=== PATIENT | male | born 1970 | race Caucasian/White ===

== ENCOUNTER 2025-04-20 13:06 | Oncology outpatient (recurring) (ONCR) | payer MEDICARE, SELFPAY ==
[2025-04-20 14:25] LABS: Hematocrit 41.5 % (37-53); Hemoglobin 14.50 g/dL (11.27-16.99); Mean Corpuscular HGB Conc 34.9 g/dL (30-55); Mean Corpuscular Hemoglobin 32.1 pg (27-33); Mean Corpuscular Volume 91.8 fl (82-101); Nucleated Red Blood Cells % 0 %; Platelet Count 323 10^3/cmm (157-399); Red Blood Count 4.52 10^6/uL (3.85-5.65); White Blood Count 9.37 10^3/uL (3.29-11.43)
[2025-04-20 14:40] LABS: Alanine Aminotransferase 16 U/L (0-41); Albumin Level 4.4 g/dL (3.5-5.2); Alkaline Phosphatase 89 U/L (40-130); Blood Urea Nitrogen 15 mg/dL (6-20); Calcium 9.4 mg/dL (8.5-10.5); Carbon Dioxide 25 mmol/L (22-29); Chloride 103 mmol/L (98-107); Globulin 3.2 g/dL (1.3-4.6); Glucose 95 mg/dL (65-115); Osmolality Calculated 291 mOsm/kg (285-295); Sodium 140 mmol/L (136-145); Total Protein 7.6 g/dL (6.6-8.7)
[2025-04-20 14:50] LABS: Anion Gap 16.1 (5-19); Aspartate Amino Transferase 16 U/L (0-40); Potassium 4.1 mmol/L (3.5-5.1)
== END 2025-04-24 23:59 | disposition home or self-care (01) ==
PROVIDERS: Visit Provider Internal Medicine
DX: Z53.9 Procedure and treatment not carried out, unspecified reason (principal); Z08 Encounter for follow-up examination after completed treatment for malignant neoplasm; Z85.528 Personal history of other malignant neoplasm of kidney; Z85.830 Personal history of malignant neoplasm of bone; Z87.891 Personal history of nicotine dependence; Z90.5 Acquired absence of kidney
CPT/HCPCS: 36415; 80053; 83615; 85025; 99204

== ENCOUNTER → 2025-05-11 08:49 | Outpatient (BNVA) | payer MEDICARE, SELFPAY | PROVIDERS: PCP Nurse Practitioner Family; Visit Provider Podiatrist Foot & Ankle Surgery | DX: M72.2 Plantar fascial fibromatosis (principal); M77.40 Metatarsalgia, unspecified foot | CPT/HCPCS: 99203 ==

== ENCOUNTER 2025-05-16 17:48 | Inpatient (IN) | payer MEDICARE, SELFPAY ==
[2025-05-16] VITALS (22 sets, daily range): BP systolic 109–153; BP diastolic 55–95; PULSE 60–80; RESP 16–18; TEMP 36.4; O2SAT 93–99; BMI 32.4
--- NOTE | 2025-05-16 17:52 | ECG_ITS ---
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
--- NOTE | 2025-05-16 17:52 | XRR_ITS ---
PROCEDURE INFORMATION: Exam: XR Chest Exam date and time: 05/16/2025 5:59 PM Age: 54 years old Clinical indication: Screening exam; Other screening; Prior surgery; Surgery date: 6+ months; Surgery type: Chest area; Additional info: Dyspnea/cough overdose TECHNIQUE: Imaging protocol: Radiologic exam of the chest. Views: 1 view. Total images: 373 COMPARISON: No relevant prior studies available. FINDINGS: Lungs: No lung consolidation, mass, or acute pulmonary abnormality identified. Pleural spaces: No pathologic pleural thickening, significant pleural effusion or pneumothorax. Heart/Mediastinum: Normal heart size. Diaphragm: Elevated left diaphragm. Bones/joints: Prior median sternotomy. Right 5th and 6th rib synostosis. Mild age-appropriate degenerative changes at the AC and glenohumeral joints; osteoarthritis. Moderate generalized degenerative changes of the vertebral column, including multilevel osteophytes, degenerative disc height loss, and facet arthrosis, consistent with patient age. XR/XR chest 1V portable [id number] IMPRESSION: 1. No acute chest pathology identified. 2. Moderate age-appropriate degenerative spinal changes. Other chronic/non-acute findings as described above.
[2025-05-16 17:59] LABS: ABG PCO2 37.4 mmHg (35-45); ABG PH Result 7.40 (7.35-7.45); Alveolar-Arterial Oxygen Gradi 3.3 mmHg (5-10); Arterial Blood Gas Hematocrit 48.2 % (42-52); Blood Gas Allen Test Pos; Blood Gas Operator Identificat GL; Blood Gas Sample Site Radial, right; Blood Gas Sample Type Arterial; Carboxyhemoglobin 1.2 %THgb (0.4-20.1); Glucose Level-ABG 89.0 mg/dL (70-115); HCO3 ABG 23.0 mmol/L (22-26); Ionized Calcium Level - ABG 1.2 mmol/L (1.1-1.4); Methemoglobin 0.1 % (0.4-1.5); Oxygen Saturation ABG 96.3; PO2 ABG 77.6 mmHg (80.0-100.0); PO2 FiO2 Ratio Arterial Blood 369; Potassium Level - ABG 4.0 mmol/L (3.5-5.0); Sodium Level - ABG 143.0 mmol/L (131-143)
--- OUTSIDE RECORDS SUMMARY | 2025-05-16 17:59 | XMS_ITS | Encounter Summary ---
Author Organization [facility] Address [address] [facility] [place] [address] Phone Care Team Providers Care Special Education Aide Name Role Phone Angel Chaidez MD Primary Care Provider + Mary Ortega RN Unavailable Unavailab Mitchell Lazo NP Primary Care Provider + Misti Mensah RN Unavailable [phone] Shae Nava RN Unavailable Unavail able Reason for Visit * Reason Comments Medication Refill Encounter Details Date Type Department Care Team (Late st Contact Info) Description 10/24/2020 Refill [facility]ORENA [facility] [address] [place] [address] Angel Chaidez MD [address] [address] Social History Tobacco Use Types Packs/Day Years Used Date Smoking Tobacco: Former Cigarettes 1.5 30 0 08/02/1990 - 08/02/2020 Cigars Smokeless Tobacco: Never Comments:smoked cigarettes x 20 yrs Alcohol Use Standard Drinks/Week Comments Not Currently 1 (1 standard drink = 0.6 oz pur e alcohol) Overall Financial Resource Strain (CARDIA) Answe r Date Recorded How hard is it for you to pa y for the very basics like food, housing, medical care, and heating? Not hard at all 04/27/2020 Hunger Vital Sign Answer Date Recorded Within the past 12 months, y ou worried that your food would run out before you got the money to buy more. Never true 04/27/20 20 Within the past 12 months, t he food you bought just didn't last and you didn't have money to get more. Never true 04/27/2020 PRAPARE - Transportation Answer Date Re corded In the past 12 months, has l ack of transportation kept you from medical appointments or from getting medications? No 07/2019 In the past 12 months, has l ack of transportation kept you from meetings, work, or from getting things needed for daily living? No 04/27/2020 Sexually Active Control Partners Comments Yes Male Sex and Gender Information Value Date Recorded Sex Assigned at Not on file Legal Sex Male 1:04 PM ELECTRICIAN SHIP Gender Identity Not on file Sexual Orientation Not on file COVID-19 Exposure Response Date Recorded In the last month, have you been in contact with someone who was confirmed or suspected to have Coronavirus / COVID-19? No / Unsure 10/24/2020 10:44 AM CDT documented as of this encounter Plan of Treatment Upcoming Encounters Date Type Department Care Team (Late st Contact Info) Description 08/29/2025 2:45 PM CDT Office Visit [facility] [address] [place] [address] Estephanie Christie, Mitchell Rodriguez, GREY STOCK RECORDER [address] [phone] 02/14/2026 1:40 PM CDT Post-Op Visit [facility] General Surgery [address] [place] [address] Luis Mckeon MD [address] Floor - Genral Surgery [place] [address] 05/24/2026 2:30 PM ELECTRICIAN SHIP Appointment [facility] [address] [place] [address] Angel Bedoya MD [address] [place] [address] Discharge Disposition: Home 07/24/2026 1:00 PM ELECTRICIAN SHIP Office Visit [facility] Urology [address] [place] [address] Angel Bedyoa MD [address] [place] [address] documented as of this encounter Goals Goal Patient Goal Type Associated Problems Recent Progress Patient-Stated? Author DIET: Will develop a DASH diet initial goal Diet Fiona Gooden LPN Regularly attend Narcotics Anonymous or Alcoholics Anonymous meetings Lifestyle No Amaya Patel LPN LIFESTYLE: Will quit smoking Lifestyle Fiona Gooden LPN LIFESTYLE: Will encourage family members to quit smoking Lifestyle No Fiona Coffey LPN Maintain blood pressure control Preventative No Fiona Coffey LPN documented as of this encounter Visit Diagnoses Not on filedocumented in this encounter Additional Health Concerns Infection Onset Date Last Indicated Resolved Time COVID-19: Pending 06/13/2021 06/13/2021 06/13/2021 10:03 AM ELECTRICIAN SHIP COVID-19: Pending 01/22/2023 01/22/2023 01/22/2023 8:45 AM CDT Assessment Noted Time A fall risk assessment has been complete d for the patient 10/24/2020 1:33 PM CDT documented as of this encounter Care Teams Special Education Aide Relationship Specialty Start Date End Date Angel Chaidez MD [address] [place] [address] PCP - General Family Medicine 10/09/15 11/28/21 Mitchell Enriquez NP [address] [place] [address] PCP - General Nurse Practitioner 11/29/21 Mary Ortega, RN Supervisory Historian Supervisory Historian 08/07/20 11/28/21 Misti Mensah, RN [address] [place] [address] Supervisory Historian Registered Nurse 11/29/21 11/11/22 Shae Nava, RN Supervisory Historian Registered Nurse 10/24/22 documented as of this encounter
--- OUTSIDE RECORDS SUMMARY | 2025-05-16 17:59 | XMS_ITS | Encounter Summary ---
Author Organization [facility] Address [address] [facility] [place] [address] Phone Care Team Providers Care Gold And Silver Assayer Name Role Phone Mitchell Enriquez TOWN ADMINISTRATOR Primary Care Provider + Shae Nava RN Unavailable Unavail able Reason for Visit * Reason Comments Medication Refill Encounter Details Date Type Department Care Team (Late st Contact Info) Description 05/15/2025 Refill [facility] [place] [address] [place] [address] Mitchell Enriquez NP [address] [place] [phone] Essential hypertension Social History Tobacco Use Types Packs/Day Years Used Date Smoking Tobacco: Former Cigarettes 1.5 30 0 08/02/1990 - 08/02/2020 Cigars Smokeless Tobacco: Never Comments:smoked cigarettes x 20 yrs Alcohol Use Standard Drinks/Week Comments Yes 0 (1 standard drink = 0.6 oz pur e alcohol) occasional Overall Financial Resource Strain (CARDIA) Answe r Date Recorded How hard is it for you to pa y for the very basics like food, housing, medical care, and heating? Not hard at all 04/27/2020 PHQ-2 Answer Date Recorded PHQ-2 Score 0 08/26/2024 Hunger Vital Sign Answer Date Recorded Within [...] things needed for daily living? No 04/27/2020 Intimate Partner Safety Answer Date Rec orded Feels Unsafe at Home or Work/School Unrecognized value 12/15/2024 Feels Threatened by Someone Unrecognized value 0 12/15/2024 Does Anyone Try to Keep You From Having Contact with Others or Doing Things Outside Your Home? Unrecognized value 12/15/2024 Physical Signs of Abuse Present Unrecognized kisha ue 12/15/2024 Major Change/Loss/Stressor/Fears Unrecognized va lue 12/15/2024 Sexually Active Control Partners Comments Yes Male Sex and Gender Information Value Date Recorded Sex Assigned at Not on file Legal Sex Male 1:04 PM HARDBOARD PRESS OPERATOR Gender Identity Not on file Sexual Orientation Not on file documented as of this encounter Plan of Treatment Upcoming Encounters Date Type Department Care Team (Late st Contact Info) Description 08/29/2025 2:45 PM CDT Office Visit [facility] [address] [place] [address] Estephanie Christie, Mitchell Rodriguez, ETHEL [address] [place] [address] 02/14/2026 1:40 PM CDT Post-Op Visit [facility] General Surgery [address] [place] [address] Luis Mckeon MD [address] Floor - Genral Surgery [place] [address] 05/24/2026 2:30 PM HARDBOARD PRESS OPERATOR Appointment [facility] [address] [place] [address] Angel Bedoya MD [address] [place] [address] Discharge Disposition: Home 07/24/2026 1:00 PM HARDBOARD PRESS OPERATOR Office Visit [facility] Urology [address] [place] [address] Angel Bedoya MD [address] [place] [address] documented as of this encounter Goals Goal [...] Coffey LPN Maintain blood pressure control Preventative Fiona Gooden LPN documented as of this encounter Visit Diagnoses Diagnosis Essential hypertension Unspecified essential hypertension documented in this encounter Additional Health Concerns Assessment Noted Time PHQ-9 Depression Total Score: 0 08/26/19 11:58 AM CDT A fall risk assessment has been complete d for the patient 12/15/2024 5:27 AM CDT PHQ-2 Depression Total Score: 0 08/26/19 25 11:58 AM CDT documented as of this encounter Care Teams Gold And Silver Assayer Relationship Specialty Start Date End Date Mitchell Enriquez NP [address] [place] [address] PCP - General Nurse Practitioner 11/29/21 Shae Nava, RN Strip Stamp Straightener Registered Nurse 10/24/22 documented as of this encounter
--- OUTSIDE RECORDS SUMMARY | 2025-05-16 17:59 | XMS_ITS | Encounter Summary ---
Author Organization [facility] Address [address] [facility] [place] [address] Phone Care Team Providers Care Zipper Trimmer Hand Name Role Phone Mitchell Enriquez Nash STAFF TRAINER Primary Care Provider + Shae Nava RN Unavailable Unavail able Encounter Details Date Type Department Care Team (Late st Contact Info) Description 05/13/2025 Telephone 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 DISTRIBUTOR TENDER documented in this encounter Plan of Treatment Upcoming Encounters Date Type Department Care Team (Late st Contact Info) Description 08/29/2025 2:45 PM CDT Office Visit [facility] [address] [facility] [address], [place] [address] Estephanie Christie LPN Stokes, Phillip Wayne, ETHEL [address] [address] 02/14/2026 1:40 PM CDT Post-Op Visit [facility] General Surgery [address] [place] [address] Luis Mckeon MD [address] Second [place] [address] 05/24/2026 2:30 PM OIL DISTRIBUTOR TENDER Appointment [facility] [address] [place] [address] Angel Bedoya MD [address] [place] [address] Discharge Disposition: Home 07/24/2026 1:00 PM OIL DISTRIBUTOR TENDER Office Visit [facility] Urology [address] [place] [address] Angel Bedoya MD [address] [place] [address] documented as of this encounter Goals Goal [...] filedocumented in this encounter Additional Health Concerns Assessment Noted Time PHQ-9 Depression Total Score: 0 08/26/19 25 11:58 AM CDT A fall risk assessment has been complete d for the patient 12/15/2024 5:27 AM CDT PHQ-2 Depression Total Score: 0 08/26/19 25 11:58 AM CDT documented as of this encounter Care Teams Zipper Trimmer Hand Relationship Specialty Start Date End Date Mitchell Enriquez NP [address] [place] [address] PCP - General Nurse Practitioner 11/29/21 Shae Nava, RN Powerhouse Mechanic Apprentice Registered Nurse 10/24/22 documented as of this encounter
--- OUTSIDE RECORDS SUMMARY | 2025-05-16 17:59 | XMS_ITS | Patient Health Record ---
Author Organization [address] [place] [address] [facility] Address [address] [place] [id number] Care Team Providers Care Posting Specialist Name Role Phone Yelena Lorenz Primary Care Provider Allergies Allergen (clinical drug ingredient) Drug/Non Drug Allergy documented on EMR Reaction Allergy Type Onset Date Status Contrast Allergy PreMed Pack Unknown Drug Allergy Active Results Component Value Reference Range Notes Colonoscopy Reviewed date:04/20/2025 09:30:27 AM Interpretation:Abnormal Performing Lab: Notes/Report: Abnormal Reason For Referral Reason 04-05 faxed, hist ory of kidney and bone cancer Diagnosis 1 History of kidney ca ncer (Z85.528) Diagnosis 2 History of bone canc er (Z85.830) Referral Organization [address] [place] [address] are HIGH Referring Provider First Name Yelena Referring Provider Last Name Kelechi Referring Provider Speciality Nurse Prac titioner Referred Provider [facility] Referred Provider Specialty Oncology General Notes Yelena Lorenz 04/04/2025 09:31:38 AM > Nico Joe Teri 04/04/2025 10:32:16 AM >spoke with nurse regarding previous records.Nico Teri 04/05/2025 08:31:20 AM >attempting to obtain previous records, will fax when receivedNico Teri 04/05/2025 08:33:26 AM >referral faxed and will monitor for appt date and time.Nico Teri 04/13/2025 01:54:25 PM >called to check status, referral received appt is pending previous records, TE to provider for recommendations, no requests for records in chart.Nico Teri, LPN 05/04/2025 03:19:49 PM DIRT SHOVELER >patient was seen 04-20-25 and visit note verbally requested Referral Priority Routine Referral Appointment Date 04/20/2025 Reason 04-05 faxed, Hist ory of ascending aneurysm repair, htn Diagnosis 1 History of aneurysm (Z86.79) Diagnosis 2 Hypertension (I10) Referral Organization [address] [place] [address] are HIGH Referring Provider First Name Yelena Referring Provider Last Name Kelechi Referring Provider Speciality Nurse Prac davidr Referred Provider [facility], C ardiology Referred Provider Specialty Cardiology General Notes Yelena Lorenz 04/04/2025 09:34:03 AM > Nico Joe Teri 04/04/2025 11:13:10 AM >pending previous records, Karin Walsh 04/05/2025 08:17:53 AM >attempting to obtain previous records and will fax when received, Karin Walsh 04/05/2025 08:30:46 AM >referral faxed and will monitor for appt date and time.Nico Teri 04/18/2025 01:32:54 PM >appt has been made for 06-20-25@915am and patient is aware of appt date and time. Referral Priority Routine Referral Appointment Date 06/20/2025 Reason 12-17appt, bilate ral foot pain, bone spurs hui Diagnosis 1 Pain in right foot ( M79.671) Diagnosis 2 Pain in left foot (M 79.672) Referral Organization [address] [place] [address] are HIGH Referring Provider First Name Yelena Referring Provider Last Name Kelechi Referring Provider Speciality Nurse Prac nikkie Referred Provider [facility], P odiatry Referred Provider Specialty Podiatry General Notes Yelena Lorenz 04/04/2025 09:34:39 AM > Nico Joe Teri 04/04/2025 11:12:46 AM >referral faxed and will monitor for appt date and time.Nico Teri 04/13/2025 01:41:06 PM >office has left message for patient to call back to schedule apptNico Teri 04/18/2025 01:29:22 PM >office has been unable to contact patient, they have mailed letter to patient., Vorai 04/27/2025 10:58:29 AM >called to ck status office has not heard from patient, I attempted to reach patient left message for call back, Vorai 04/27/2025 11:03:45 AM >patient will call me when he has scheduled appt, from sent TE, he has appt with Ramiro on Friday 05/11, @1230 for his podiatry , FYI Referral Priority Routine Referral Appointment Date 05/11/2025 Medications Medication SIG (Take, Route, Frequency, Duration) Notes Start Date End Date Status diazePAM 10 MG Tablet Oral Active amLODIPine Besylate 10 MG Tablet TAKE ONE TABLET BY MOUTH ONCE A DAY FOR BLOOD PRESSURE Oral Active Losartan Potassium 25 MG Tablet TAKE ONE TABLET BY MOUTH EVERY DAY Oral Active Zepbound 2.5 MG/0.5ML Solution Auto-injector Subcutaneous Activ e Ketoconazole 2 % Shampoo External; Durat ion: 30 Days Active Metoprolol Tartrate 25 MG Tablet TAKE ONE TABLET BY MOUTH TWICE DAILY Oral Active Social History Social History Adult Health Maintenance- Social Info Question Answer Notes Zoster Vaccine age 50> Completed Yes Pneumovax >65 or high risk Yes Tetanus tetanus within the last 5 years Yes Monthly Testicular Self-Exam Counseling for 15-35 years of age Counseled Yes Date Counseled 03/29/2025 Colorectal Cancer Screening Have you had a colorectal cancer screening? Yes Type of Screening: Colonoscopy Date: 09/27/2024 PSA PSA Yes Flu Shot Yearly Yes Problems Problem Type SNOMED Code ICD Code Onset Dates Problem Status W/U Status Risk Notes Problem Hypertension (24059725) Hypertension (I10) Active confirmed Problem Anxiety (23348488) Anxiety (F41.1) Active confirmed Problem Sleep apnea (32444932) Sleep apnea (G47.30) Active confirmed Problem Pulmonary nodule (731933276) Pulmonary nodule (R91.1) Active confirmed Problem Overweight (353204716) Overweight (E66.3) Active confirmed Problem Chronic pain (49307639) Other chronic pain (G89.29) Active confirmed Problem Personal history of primary malignant neoplasm of kidney (255185835) History of kidney cancer (Z85.528) Active confirmed Vital Signs Heart Rate 63 /min 03/29/2025 Temperature 9735 degrees Fahrenheit 03/29/2025 Respiratory Rate 18 /min 03/29/2025 Height-cm 177.8 cm 03/29/2025 Oximetry 95 03/29/2025 Blood pressure diastolic 78 mm Hg 03/29/2025 Weight-kg 106.6 Kg 03/29/2025 Height 70 in 03/29/2025 Blood pressure systolic 138 mm Hg 03/29/2025 Weight 235.0 lbs 03/29/2025 BMI 33.72 kg/m2 03/29/2025 Encounters Encounter Location Date Provider Diagnosis [address] [place] [address] 03/29/2025 eYlena Lorenz Hypertension I10 ; Encounter to establish care Z76.89 ; Sleep apnea G47.30 ; Anxiety F41.1 ; Pain in right foot M79.671 ; Pain in left foot M79.672 ; Pulmonary nodule R91.1 ; History of bone cancer Z85.830 ; History of aneurysm Z86.79 ; History of kidney cancer Z85.528 ; Overweight E66.3 and Dietary counseling Z71.[address] [place] [address] 04/04/[address] [address] 04/04/2025 Yelena Lorenz [address] [place] [address] 04/13/2025 Yelena Lorenz [address] [place] [address] 04/13/2025 Yelena Lorenz [address] [place] [address] 04/27/2025 Yelena Lorenz [address] [place] [phone] 04/28/2025 Yelena Lorenz Assessments Encounter Date Diagnosis (ICD Code) Assessment Notes Treatment Notes Treatment Clinical Notes Section Notes 03/29/2025 Hypertension (ICD-10 - I10) 03/29/2025 Encounter to establish care (ICD-10 - Z76.89) Records requested 03/29/2025 Sleep apnea (ICD-10 - G47.30) 03/29/2025 Anxiety (ICD-10 - F41.1) 03/29/2025 Pain in right foot (ICD-10 - M79.671) 03/29/2025 Pain in left foot (ICD-10 - M79.672) 03/29/2025 Pulmonary nodule (ICD-10 - R91.1) 03/29/2025 History of bone cancer (ICD-10 - Z85.830) 03/29/2025 History of aneurysm (ICD-10 - Z86.79) 03/29/2025 History of kidney cancer (ICD-10 - Z85.528) 03/29/2025 Overweight (ICD-10 - E66.3) 03/29/2025 Dietary counseling (ICD-10 - Z71.3) The following information is provided to help patients understand the role BMI, nutrition, and physical activity play in a patient's overall health. Please review the information available in these links. ADULT BMI: https://www.cdc .gov/healthywei ght/assessing/b mi/adult_bmi/en glish_bmi_calcu lator/bmi_calcu lator.html DIETARY GUIDELINES: https://www.[facility] county global medical centerFederated Sample. gov/sites/defau lt/files/ 3/Dietary_Guide lines_for_Ameri can-... PHYSICAL ACTIVITIES GUIDELINES: https://www.cdc .gov/healthywei ght/physical_ac tivity/index.ht ml Plan Of Treatment Next Appt Details Provider Name:Yelena walker, 06/30/2025 10:00:00 AM, [address] [place] [address], [phone], Insurance Providers Payer Name Payer Address Payer Phone Subscriber Number Group Number Insured Name Patient Relationship to Insured Coverage Start Date Coverage End Date [facility] [address] [address] [place] [address] [id number] Angel Singh Self - patient is the insured Medical (General) History Medical History History ICD Code Arthritis Hypertension sleep apnea cancer kidney bone cancer Surgical History Surgery Date(Month/Year) mouth surgery heart surgery left kidney removal bone removal lung biopsy carpal tunnel release shoulder surgery hernia repair
--- OUTSIDE RECORDS SUMMARY | 2025-05-16 17:59 | XMS_ITS | Encounter Summary ---
Author Organization [facility] Address 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 LAB 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 Gender Identity Not on file Sexual Orientation Not on file documented as of this encounter Plan of Treatment Upcoming Encounters Date Type Department Care Team (Late st Contact Info) Description 08/29/2025 2:45 PM CDT Office Visit [facility] [address] [place] [address] Estephanie Christie, Mitchell Rodriguez, ETHEL [address] [place] [address] 02/14/2026 1:40 PM CDT Post-Op Visit [facility] General Surgery [address] [place] [address] Luis Mckeon MD [address] - Genral Surgery [place] [address] 05/24/2026 2:30 PM ENGINEERING LAB TECHNICIAN Appointment [facility] [address] [place] [address] Angel Bedoya MD [address] [place] [address] Discharge Disposition: Home 07/24/2026 1:00 PM ENGINEERING LAB TECHNICIAN Office Visit [facility] Urology [address] [place] [address] Angel Bedoya MD [address] [place] [address] documented as of this encounter Goals Goal [...] as of this encounter Visit Diagnoses Diagnosis Weight loss counseling, encounter for- Primary documented in this encounter Additional Health Concerns Assessment Noted Time PHQ-9 Depression Total Score: 0 08/26/19 25 11:58 AM CDT A fall risk assessment has been complete d for the patient 12/15/2024 5:27 AM CDT PHQ-2 Depression Total Score: 0 08/26/19 25 11:58 AM CDT documented as of this encounter Care Teams Machine Slat Basket Maker Relationship Specialty Start Date End Date Mitchell Enriquez NP [address] [place] [address] PCP - General Nurse Practitioner 11/29/21 Shae Nava, RN Parts Designer Registered Nurse 10/24/22 documented as of this encounter
--- OUTSIDE RECORDS SUMMARY | 2025-05-16 17:59 | XMS_ITS | Encounter Summary ---
Author Organization [facility] Address [address] [facility] [place] [address] Phone Care Team Providers Care Pipe Cleaner Name Role Phone Mitchell Enriquez FLY WORKER Primary Care Provider + Shae Nava RN Unavailable Unavail able Reason for Visit * Reason Comments Medication Refill Encounter Details Date Type Department Care Team (Late st Contact Info) Description 04/21/2023 Refill [facility] [address] [place] [address] Mitchell Enriquez, ETHEL [address] [place] [phone] Night muscle spasms Social History Tobacco Use Types Packs/Day Years Used Date Smoking Tobacco: Former Cigarettes 1.5 30 0 08/02/1990 - 08/02/2020 Cigars Smokeless Tobacco: Never Comments:smoked cigarettes x 20 yrs Alcohol Use Standard Drinks/Week Comments Yes 1 (1 standard drink = 0.6 oz pur e alcohol) 1-2 BEERS NIGHTLY NEEDED Overall Financial Resource Strain (CARDIA) Saleeme r Date Recorded How hard is it for you to pa y for the very basics like food, housing, medical care, and heating? Not hard at all 04/27/2020 PHQ-2 Answer Date Recorded PHQ-2 Score 0 11/08/2022 Hunger Vital Sign Answer Date Recorded Within [...] on file Legal Sex Male 1:04 PM SCAFFOLD SETTER Gender Identity Not on file Sexual Orientation Not on file documented as of this encounter Plan of Treatment Upcoming Encounters Date Type Department Care Team (Late st Contact Info) Description 08/29/2025 2:45 PM CDT Office Visit [facility] [address] [facility] [address] [place] [address] Estephanie Christie, CATRACHO Enriquez, Mitchell Cao, FLY WORKER [address] [place] [address] 02/14/2026 1:40 PM CDT Post-Op Visit [facility] General Surgery [address] [place] [address] Luis Mckeon MD [address] [place] [address] 05/24/2026 2:30 PM SCAFFOLD SETTER Appointment [facility] [address] [place] [address] Angel Bedoya MD [address] [facility] [address] Discharge Disposition: Home 07/24/2026 1:00 PM SCAFFOLD SETTER Office Visit [facility] Urology [address] [place] [address] Angel Bedoya MD [address] [place] [address] documented as of this encounter Goals Goal Patient Goal Type Associated Problems Recent Progress Patient-Stated? Author DIET: Will develop a DASH diet initial goal Diet No Fiona Coffey LPN Regularly attend Narcotics Anonymous or Alcoholics Anonymous meetings Lifestyle No Amaya Patel LPN LIFESTYLE: Will quit smoking Lifestyle Fiona Gooden LPN LIFESTYLE: Will encourage family members to quit smoking Lifestyle No Fiona Coffey LPN Maintain blood pressure control Preventative No Fiona Coffey LPN documented as of this encounter Visit Diagnoses Diagnosis Night muscle spasms documented in this encounter Additional Health Concerns Assessment Noted Time PHQ-9 Depression Total Score: 8 11/08/19 11:07 AM CDT PHQ-2 Depression Total Score: 0 11/08/19 11:07 AM CDT documented as of this encounter Care Teams Pipe Cleaner Relationship Specialty Start Date End Date Mitchell Enriquez NP [address] [place], [place] [address] PCP - General Nurse Practitioner 11/29/21 Shae Nava, RN Instructor Bridge Registered Nurse 10/24/22 documented as of this encounter
--- OUTSIDE RECORDS SUMMARY | 2025-05-16 18:00 | XMS_ITS ---
Author Organization [facility] Address 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 Mood normal. Behavior normal. No complaints or concerns, continue regimen and keep all follow up appointments. Will reassess in 3 months. Assessment & Plan (02/18/2023 3:29 PM CDT): Depression, recurrent (HCC) Class: Stable Patient is followed for this problem by PCP. Mood normal. Behavior normal. No complaints or concerns, continue regimen and keep all follow up appointments. Will reassess in 3 months. Bilateral leg pain 01/08/2022 Assessment & Plan (05/29/2023 8:58 AM FRUIT COORDINATOR): Bilateral leg pain Class: Stable Patient is followed for this problem by PCP. Normal range of motion. No complaints or concerns, continue current regimen and keep all follow up appointments. Will reassess in 3 months. Assessment & Plan (02/18/2023 3:13 PM CDT): Bilateral leg pain Class: Stable Patient is followed for this problem by PCP. Normal range of motion. No complaints or concerns, continue current regimen and keep all follow up appointments. Will reassess in 3 months. Assessment & Plan (11/13/2022 10:33 AM CDT): Bilateral leg pain Class: Stable Patient is a 51 y/o male that comes to the clinic for his initial Medicare AWV. Denies any problems during this visit. Will reasess in 1 year OMER (acute kidney injury) 11/30/2021 Assessment & Plan (05/29/2023 8:50 AM FRUIT COORDINATOR): OMER (acute kidney injury) (HCC) Class: Stable Patient is followed for this problem by urology, last seen 11/18/22. Last labs on was normal. Will reassess in 3 months. Latest Reference Range & Units 02/10/23 13:49 BUN 7 - 18 mg/dL 13 Creatinine 0.60 - 1.30 mg/dL 1.20 Assessment & Plan (02/18/2023 3:27 PM CDT): OMER (acute kidney injury) (HCC) Class: Stable Patient is followed for this problem by urology, last seen 11/18/22. Labs today Bun 10.8 and Cr 1.20. Will reassess in 3 months. Assessment & Plan (11/13/2022 10:41 AM CDT): OMER (acute kidney injury) (HCC) Class: Stable Patient is followed for this problem by Urology, last seen on 02/18/22. Last labs on 05/10/22. Will reassess in 1 year. Latest Reference Range & Units 10/11/15 08:30 06/21/16 09:43 03/04/17 09:21 10/29/17 10:29 03/16/18 09:55 10/22/18 09:41 02/01/19 15:46 08/02/19 09:19 02/02/20 15:44 03/30/20 15:00 04/27/20 14:31 06/12/20 09:42 07/31/20 13:29 08/02/20 18:02 08/03/20 03:13 08/04/20 02:40 08/05/20 05:31 08/06/20 05:32 08/07/20 03:08 10/16/20 13:55 10/17/20 07:44 10/18/20 06:08 01/18/21 08:39 05/14/21 07:49 08/29/21 07:55 11/29/21 15:17 11/30/21 05:58 01/06/22 15:36 05/10/22 11:06 BUN 7 - 18 mg/dL 10 10 11 9 14 12 19 (H) 14 20 (H) 21 (H) 20 (H) 20 (H) 16 2 (L) 17 11 18 30 (H) 36 (H) 16 14 11 20 (H) 11 10 29 (H) 19 (H) 17 15 Creatinine 0.60 - 1.30 mg/dL 0.70 0.70 0.70 0.70 0.70 0.60 0.80 0.70 1.20 1.30 1.06 1.20 1.10 1.56 (H) 1.30 0.90 1.10 1.40 (H) 1.60 (H) 1.50 (H) 1.00 1.00 1.00 1.00 1.00 2.20 (H) 1.20 1.60 (H) 1.10 Shoulder bursitis 11/30/2021 Assessment & Plan (05/29/2023 9:34 AM FRUIT COORDINATOR): Shoulder bursitis Class: Stable Musculoskeletal: Negative. Normal range of motion. No complaints or concerns, continue current regimen and keep all follow up appointments. Will reassess in 3 months. Assessment & Plan (02/18/2023 3:16 PM CDT): Shoulder bursitis Class: Stable Musculoskeletal: Negative. Normal range of motion. No complaints or concerns, continue current regimen and keep all follow up appointments. Will reassess in 3 months. Assessment & Plan (11/12/2022 3:39 PM CDT): Shoulder bursitis Class: Stable Musculoskeletal: Negative. Normal range of motion. No complaints or concerns, continue current regimen and keep all follow up appointments. Will reassess in [address] of the chest 02/27/2021 Overview (02/27/2021): Added automatically from request for surgery [id number] Assessment & Plan (05/29/2023 8:36 AM FRUIT COORDINATOR): Abnormal CT of the chest Class: Stable CT of chest on 11/30/21 revealed Postsurgical changes involve ascending thoracic aorta. Thoracic aorta normal in course and caliber. Chronic chest changes as described without suspicious chest mass or nodule. Will reassess in 3 months. Assessment & Plan (02/18/2023 3:12 PM CDT): Abnormal CT of the chest Class:Stable CT of chest on 11/30/21 revealed Postsurgical changes involve ascending thoracic aorta. Thoracic aorta normal in course and caliber. Chronic chest changes as described without suspicious chest mass or nodule. Will reassess in 3 months. Assessment & Plan (11/13/2022 10:46 AM CDT): Abnormal CT of the chest Class: Stable CT of chest on 11/30/21 revealed Postsurgical changes involve ascending thoracic aorta. Thoracic aorta normal in course and caliber. Chronic chest changes as described without suspicious chest mass or nodule. Will reassess in 1 year. Malaise and fatigue 01/08/2021 Assessment & Plan (05/29/2023 9:43 AM FRUIT COORDINATOR): Malaise and fatigue Class: Stable Patient is followed for this problem by PCP. No complaints or concerns, continue current regimen and keep all follow up appointments. Will reassess in 3 months. Assessment & Plan (02/18/2023 3:14 PM CDT): Malaise and fatigue Class: Stable Patient is followed for this problem by PCP. No complaints or concerns, continue current regimen and keep all follow up appointments. Will reassess in 3 months. Assessment & Plan (11/13/2022 10:20 AM CDT): Malaise and fatigue Class:Unstable Patient is followed by PCP for this problem. Patient stated he feels tired almost every day in his questions for his AWV. He is not in acute distress. Normal appearance. He is not ill-appearing, toxic-appearing or diaphoretic. Will reassess in 1 year. Shortness of breath 01/08/2021 Assessment & Plan (05/29/2023 9:33 AM FRUIT COORDINATOR): Shortness of breath Class: Controlled Patient is followed for this problem by PCP. Pulse ox today SpO2 96%. Controlled with symbicort and albuterol.Normal breath sounds. Will reassess in 3 months. Currently uses: Symbicort 160-4.5 mcg inhaler 2 puffs BID and Albuterol 90 mcg inhaler 2 puffs every 6 hours prn. Assessment & Plan (02/18/2023 3:16 PM CDT): Shortness of breath Class: Controlled Pulmonary effort is normal. Breath sounds: Normal breath sounds. Negative for cough and shortness of breath. Will reassess in 3 months. Assessment & Plan (11/13/2022 9:57 AM CDT): Shortness of breath Class:Controlled Pulmonary effort is normal. Normal breath sounds. Controlled with symbicort and albuterol and denies any side effects. Will reassess in 1 year. Chest pain 10/16/2020 Assessment & Plan (05/29/2023 9:06 AM FRUIT COORDINATOR): Chest pain Class: Stable Patient is followed for this problem by cardiology, last seen on 01/06/23. The patient is a 52 y.o. male seen in clinic for follow up for PAF. Denied significant cardiac issues. Denied chest pain, palpitations, shortness of breath, dizziness, edema, and syncope. Will reasess in 3 months. Assessment & Plan (02/18/2023 3:13 PM CDT): Chest pain Class: Stable Patient is followed for this problem by cardiology, last seen on 01/06/23. he patient is a 52 y.o. male seen in clinic for follow up for PAF.Denies significant cardiac issues. Denies chest pain, palpitations, shortness of breath, dizziness, edema, and syncope. Will reassess in 3 Months. Assessment & Plan (11/13/2022 10:31 AM CDT): Chest pain Class: Unstable Patient is followed for this problem by cardiology, last seen on 07/10/22. Positive for chest pain. Cardiac rhythm is regular. Apical impulse is normal. S1 and S2 are normal. There are no murmurs, gallops, or rubs. Will reassess in 1 year. S/P AAA (abdominal aortic aneurysm) repair 08/02 Assessment & Plan (05/29/2023 9:31 AM FRUIT COORDINATOR): S/P AAA (abdominal aortic aneurysm) repair Class: Stable Patient underwent surgery on 08/02/20 for Minimally invasive with an upper mini sternotomy repair of an ascending aortic aneurysm. Will reassess in 3 months. Assessment & Plan (02/18/2023 3:01 PM CDT): S/P AAA (abdominal aortic aneurysm) repair Class: Stable Patient underwent surgery on 08/02/20 for Minimally invasive with an upper mini sternotomy repair of an ascending aortic aneurysm. Will reassess in 6 months. Assessment & Plan (11/12/2022 3:41 PM CDT): S/P AAA (abdominal aortic aneurysm) repair Class: Stable Patient underwent surgery on 08/02/20 for Minimally invasive with an upper mini sternotomy repair of an ascending aortic aneurysm. Will reassess in 1 year. Bicuspid aortic valve 06/29/2020 Assessment & Plan (05/29/2023 8:17 AM FRUIT COORDINATOR): Bicuspid aortic valve Class: Stable Patient is followed by cardiology for this problem, last seen on 01/06/23. Echo 03/23/2020: EF 55-60%, bicuspid aortic valve with fusion of the right and left coronary cusps and moderate calcification, mild AR/, ascending aortic aneurysm with max diameter 5.0 cm. Will reassess in 3 months. Assessment & Plan (02/18/2023 1:37 PM CDT): Bicuspid aortic valve Class: Stable Patient is followed by cardiology for this problem, last seen on 01/06/23. he patient is a 52 y.o. male seen in clinic for follow up for PAF.Denies significant cardiac issues. Denies chest pain, palpitations, shortness of breath, dizziness, edema, and syncope. Echo 11/30/2021: Left ventricular ejection fraction is visually estimated at 60%. Diastolic filling pattern is normal. Mild concentric LVH No wall motion abnormalities are identified. Mild AV stenosis. AV area 1.6 cm2 Normal estimated PA systolic pressure. Moderately dilated aortic root, 4.2 cm. Will reassess in 3 months. Assessment & Plan (11/13/2022 9:44 AM CDT): Bicuspid aortic valve Class: Stable Patient is followed for this problem by Cardiology last seen on 07/10/22. Echo on 03/23/20 showed Bicuspid aortic valve with fusion of the right and left coronary cusps and moderate calcification. Will reassess in 1 year. Ascending aortic aneurysm 06/12/2020 Assessment & Plan (05/29/2023 8:18 AM FRUIT COORDINATOR): Ascending aortic aneurysm (HCC) Class: Stable Patient is followed by Cardiovascular surgery for this problem, last seen on 08/28/22.Patient is a 51 year old male with h/o ascending aortic aneurysm repair, resection of lytic lesion of the sternum on 08/02/[address] Johnson. The lesion was negative for malignancy. Dr. Hinds did a pectoral wound closure after the surgery. The patient had a follow up CT of chest done on 08/09/22 which showed chronic chest changes with no new findings. No chest lymphadenopathy. No definite sternal abnormalities seen. No chest mass or nodule noted. No fractured wires. Will reassess in 3 months. 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 Johnson. The lesion was negative for malignancy. Dr. Hinds did a pectoral wound closure after the surgery. The patient had a follow up CT of chest done on 08/09/22 which showed chronic chest changes with no new findings. No chest lymphadenopathy. No definite sternal abnormalities seen. No chest mass or nodule noted. No fractured wires. The patient relates chronic chest wall pain syndrome with some point tendernessThe incision is well healed. The sternum is strong and stable. No popping or movement of the sternum. Patient relates intermittent feelings of something stuck in his throat . The pain is not related to his specific activity such as eating or drinking. Most likely this is not related to his previous surgery but may be related to esophageal spasms and might consider an EGD to evaluate. He denies classic angina type pain. He has some shortness of breath that is not worsening. Positive for fatigue. Legs feels heavy at times. Will reassess in 3 months. Assessment & Plan (11/12/2022 3:13 PM CDT): Ascending aortic aneurysm (HCC) Class: Stable Patient underwent surgery on 08/02/20 for Minimally invasive with an upper mini sternotomy repair of an ascending aortic aneurysm. Will reassess in 1 year. Xerostomia 01/24/2020 Assessment & Plan (05/29/2023 8:20 AM FRUIT COORDINATOR): Xerostomia Class: Stable Patient was seen by Sleep Medicine for this problem, last seen on 07/17/20. Biotene over the counter to use at bedtime before PAP therapy for dry mouth symptoms. Use as directed. [place] or Gel seems to last longer than mouth wash. Mouth care twice a day and as needed due to dry mouth symptoms to prevent dental cavities and/or gum disease. Will reassess in 3 months. Assessment & Plan (02/18/2023 3:10 PM CDT): Xerostomia Class: Stable Patient was seen by Sleep Medicine for this problem, last seen on 07/17/20. Biotene over the counter to use at bedtime before PAP therapy for dry mouth symptoms. Use as directed. [place] or Gel seems to last longer than mouth wash. Mouth care twice a day and as needed due to dry mouth symptoms to prevent dental cavities and/or gum disease. Will reassess in 3 months. Assessment & Plan (11/12/2022 3:18 PM CDT): Xerostomia Class: Stable Patient was seen for this problem by Sleep medicine last seeen on 07/17/20. Dry Mouth Symptoms not relieved with the use of humidifier: If you do not know how to adjust the humidifier, please call your local [employer] medical equipment company where you received your PAP machine to see if they can guide you in adjusting the humidifier. The humidifier can be adjusted by you at any time without concern of messing up your current pressures. The higher you adjust the number on your humidifier the more moisture the humidifier will give you to help with dry mouth or nasal symptoms. The Respironics machine humidifier goes from 0-5, and the Resmed machine humidifier goes from 0-8. Biotene or Equate mouth lubricant that comes in gel/spray/mouthwash or lozenge can be bought in the mouth care/toothpaste section of store. I recommend using at bedtime, and as needed for dry mouth symptoms. Mouth care is very important when using positive airway pressure therapy. If dry mouth is not treated, then this increases risk for dental caries and gum disease. Saliva is very important in preventing dental caries and gum disease. Will reassess in 1 year. Renal mass, left 06/14/2019 Assessment & Plan (05/29/2023 9:30 AM FRUIT COORDINATOR): Renal mass, left Class: Stable Patient is followed by Urology for this problem, last seen 11/18/22. Patient returns for follow-up. He had a left nephrectomy at [facility] that was difficult. This was done in 08/2019. He has returned for follow-up. His pathology specimen revealed clear cell carcinoma with sarcomatoid features. We have been seeing him with roughly every 6 month visits without any changes noted his CT. He returned today with no flank pain or gross hematuria. His CT was reviewed revealing no findings suggestive of any recurrence when I review films and report. He has occasional left-sided upper abdominal odd bubble sensation that he notes from time to time. He has been doing more excessive lifting that what he is used to.These things as well as review of his CT suggest a non urologic source for this finding. He is stable from a renal cell carcinoma standpoint with no signs of recurrence. We will see him now in a year with a CT with and without. Will reassess in 3 months. Assessment & Plan (02/18/2023 3:15 PM CDT): Renal mass, left Class: Stable The patient was found to have a 14cm mass of the L kidney on 06/02/19. He underwent a L nephrectomy at [facility] on 09/03/19. 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 The tumor was limited to the kidney. Margins were negative for carcinoma. Final stage pT2b cN0 cM0. Will reassess in 3 months.. Assessment & Plan (11/12/2022 3:43 PM CDT): Renal mass, left Class: Stable The patient was found to have a 14cm mass of the L kidney on 06/02/19. He underwent a L nephrectomy at [facility] on 09/03/19. 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 The tumor was limited to the kidney. Margins were negative for carcinoma. Final stage pT2b cN0 cM0. Will reassess in 1 year. Obstructive sleep apnea 04/10/2019 Assessment & Plan (05/29/2023 8:35 AM FRUIT COORDINATOR): Obstructive sleep apnea Class: Stable Patient is followed for this problem by Sleep medicine, last seen on 07/17/20. Uses CPAP at night, denies any issues, continue current regimen. Will reassess in 3 months. Assessment & Plan (02/18/2023 3:12 PM CDT): Obstructive sleep apnea Class: Stable Patient was seen for this problem by Sleep medicine last seeen on 07/17/20. Patient uses a CPAP machine at night. Will reassess in 3 months. Assessment & Plan (11/12/2022 3:27 PM CDT): Obstructive sleep apnea Class: Stable Patient was seen for this problem by Sleep medicine last seeen on 07/17/20. Patient uses a CPAP machine at night. Will reassess in 1 year. Insomnia, psychophysiological 04/10/2019 Assessment & Plan (05/29/2023 9:22 AM FRUIT COORDINATOR): Insomnia, psychophysiological Class: Stable Patient is followed for this problem by PCP. Patient uses CPAP at night denies any issues. Will reassess in 3 months. Assessment & Plan (02/18/2023 3:30 PM CDT): Insomnia, psychophysiological Class: Stable Patient is followed for this problem by PCP. Patient uses CPAP at night denies any issues. Will reassess in 3 months. Assessment & Plan (11/13/2022 10:22 AM CDT): Insomnia, psychophysiological Class: Stable Patient was seen for this problem by Sleep medicine last seeen on 07/17/20. Patient uses a CPAP machine at night. Will reassess in 1 year. Currently takes: Valium 10 mg po q hs prn Impacted cerumen of right ear 04/08/2018 Overview (07/28/2018): -controlled -no new complaints noted or voiced -continue current tx regimen -follows ENT for this issue -will reassess in 6 months at FU appt. Assessment & Plan (05/29/2023 9:21 AM FRUIT COORDINATOR): Impacted cerumen of right ear Class: Stable Right Ear: Tympanic membrane, ear canal and external ear normal. There is no impacted cerumen. Left Ear: Tympanic membrane, ear canal and external ear normal. There is no impacted cerumen. Will reassess in 3 months. Assessment & Plan (02/18/2023 3:31 PM CDT): Impacted cerumen of right ear Class: Stable Right Ear: Tympanic membrane, ear canal and external ear normal. There is no impacted cerumen. Left Ear: Tympanic membrane, ear canal and external ear normal. There is no impacted cerumen. Will reassess in 3 months. Assessment & Plan (11/13/2022 10:24 AM CDT): Impacted cerumen of right ear Class: Stable Right Ear: Tympanic membrane, ear canal and external ear normal. There is no impacted cerumen. Left Ear: Tympanic membrane, ear canal and external ear normal. There is no impacted cerumen. Will reassess in 1 year. Assessment & Plan (04/08/2018 7:52 AM FRUIT COORDINATOR): After informed consent was obtained, the patient was placed in the supine position and the right ear was approached with the operating microscope. A cerumen impaction was removed with a cerumen spoon and suction. Tympanic membrane was normal. 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 Assessment & Plan (05/29/2023 8:19 AM FRUIT COORDINATOR): Oronasal fistula Class: Stable Patient was seen for this problem by [facility] Otolaryngology, last seen on 03/27/17. No complaints or concerns, continue current regimen and keep all follow up appointments. Will reassess in 3 months Assessment & Plan (02/18/2023 1:44 PM CDT): Oronasal fistula Class: Stable Patient was seen for this problem by [facility] Otolaryngology, last seen on 03/27/17. No complaints or concerns, continue current regimen and keep all follow up appointments. Will reassess in 3 months. Assessment & Plan (11/12/2022 3:21 PM CDT): Oronasal fistula Class: Stable Patient was seen for this problem by [facility] Otolaryngology, last seen on 03/27/17. No complaints or concerns, continue current regimen and keep all follow up appointments. Will reassess in 1 year. Assessment & Plan (11/05/2016 8:30 AM CDT): Reviewed mri and ct with dr otero and recommending an appt with dr brody. Assessment & Plan (10/23/2016 9:39 AM CDT): Plan for ct sinuses and rtc after to discuss. Chronic sinusitis 10/23/2016 Overview (07/28/2018): -controlled -no new complaints noted or voiced -continue current tx regimen -continue Flonase 50 mcg twice daily -will reassess in 6 months at FU appt. Assessment & Plan (05/29/2023 8:23 AM FRUIT COORDINATOR): Chronic sinusitis Class: Stable Patient is followed for this problem by PCP. Negative for congestion, ear pain, postnasal drip, rhinorrhea, sinus pressure and sore throat. Will reassess in 3 months. Assessment & Plan (02/18/2023 3:11 PM CDT): Chronic sinusitis Class: Stable Patient is followed for this problem by PCP. Negative for congestion, ear pain, postnasal drip, rhinorrhea, sinus pressure and sore throat. Will reassess in 3 months. Assessment & Plan (11/12/2022 3:29 PM CDT): Chronic sinusitis Class: Stable Negative for congestion, ear pain, postnasal drip, rhinorrhea, sinus pressure and sore throat. Will reassess in 1 year. Ulnar nerve neuropathy 08/19/2016 Overview (03/25/2018): -controlled -no new complaints noted or voiced -continue current tx regimen -will reassess in 6 months at FU appt. Assessment & Plan (05/29/2023 9:39 AM FRUIT COORDINATOR): Ulnar nerve neuropathy Class: Stable Normal range of motion. No complaints or concerns, continue current regimen and keep all follow up appointments. Will reassess in 3 months. Assessment & Plan (02/18/2023 3:10 PM CDT): Ulnar nerve neuropathy Class: Stable No complaints or concerns, continue current regimen and keep all follow up appointments. Will reassess in 3 months. Assessment & Plan (11/12/2022 3:33 PM CDT): Ulnar nerve neuropathy Class: Stable No complaints or concerns, continue current regimen and keep all follow up appointments. Will reassess in 1 year. Alcohol use 10/09/2015 Overview (03/25/2018): -controlled -no new complaints noted or voiced -continue current tx regimen -will reassess in 6 months at FU appt. Assessment & Plan (05/29/2023 8:55 AM FRUIT COORDINATOR): Alcohol use Class: Uncontrolled Patient is followed for this problem by PCP. Patient stated at his last appointment that he drinks an average of 6 drinks a day. Will reassess in 3 months. Assessment & Plan (02/18/2023 3:13 PM CDT): Alcohol use Class: Uncontrolled Patient is followed for this problem by PCP. Patient stated at his last appointment that he drinks an average of 6 drinks a day. Will reassess in 3 months. Assessment & Plan (11/13/2022 10:36 AM CDT): Alcohol use Class: Uncontrolled Patient is followed for this problem by PCP. Patient stated in his questions he drinks an average of 6 drinks a day. Discussed the dangers to self and health that come with recreational drug use. Provided an informational sheet on polysubstance use/abuse in the after visit summary. Will reassess in 1 year. Tobacco use 10/09/2015 Overview (03/25/2018): -controlled -no new complaints noted or voiced -continue current tx regimen -tobacco education given -will reassess in 6 months at FU appt. Assessment & Plan (05/29/2023 9:34 AM FRUIT COORDINATOR): Tobacco use Class: Stable Patient is followed for this problem by PCP. Former (Quit Date: 08/02/2020), 1.5 ppd, 43.5 pack-year. Pulmonary effort is normal. Normal breath sounds. Will reassess in 3 months. Assessment & Plan (02/18/2023 3:16 PM CDT): Tobacco use Class: Stable Patient is followed for this problem by PCP. Former (Quit Date: 08/02/2020), 1.5 ppd, 43.5 pack-year. Pulmonary effort is normal. Normal breath sounds. Will reassess in 3 months. Assessment & Plan (11/12/2022 3:36 PM CDT): Tobacco use Class: Stable Patient is followed for this problem by PCP. Former (Quit Date: 08/02/2020), 1.5 ppd, 43.5 pack-year. Pulmonary effort is normal. Normal breath sounds. Will reassess in 1 year. Chronic kidney disease Assessment & Plan (05/29/2023 9:07 AM FRUIT COORDINATOR): Chronic kidney disease Class: Stable Patient is followed for this problem by urology, last seen 11/18/22. Last labs on was normal. Will reassess in 3 months. Latest Reference Range & Units 02/10/23 13:49 BUN 7 - 18 mg/dL 13 Creatinine 0.60 - 1.30 mg/dL 1.20 Assessment & Plan (02/18/2023 3:28 PM CDT): Chronic kidney disease Class: Stable Patient is followed for this problem by urology, last seen 11/18/22. Labs today, Bun 10.8 and Cr 1.20. Will reassess in 3 months. Assessment & Plan (11/13/2022 10:41 AM CDT): Chronic kidney disease Class:Stable He is followed by Urology for this problem, last seen on 02/18/22. Last labs on 05/10/22. No complaints or concerns. Continue current regimen and keep all follow up appointments. Will reassess in 1 year. Latest Reference Range & Units 10/11/15 08:30 06/21/16 09:43 03/04/17 09:21 10/29/17 10:29 03/16/18 09:55 10/22/18 09:41 02/01/19 15:46 08/02/19 09:19 02/02/20 15:44 03/30/20 15:00 04/27/20 14:31 06/12/20 09:42 07/31/20 13:29 08/02/20 18:02 08/03/20 03:13 08/04/20 02:40 08/05/20 05:31 08/06/20 05:32 08/07/20 03:08 10/16/20 13:55 10/17/20 07:44 10/18/20 06:08 01/18/21 08:39 05/14/21 07:49 08/29/21 07:55 11/29/21 15:17 11/30/21 05:58 01/06/22 15:36 05/10/22 11:06 BUN 7 - 18 mg/dL 10 10 11 9 14 12 19 (H) 14 20 (H) 21 (H) 20 (H) 20 (H) 16 2 (L) 17 11 18 30 (H) 36 (H) 16 14 11 20 (H) 11 10 29 (H) 19 (H) 17 15 Creatinine 0.60 - 1.30 mg/dL 0.70 0.70 0.70 0.70 0.70 0.60 0.80 0.70 1.20 1.30 1.06 1.20 1.10 1.56 (H) 1.30 0.90 1.10 1.40 (H) 1.60 (H) 1.50 (H) 1.00 1.00 1.00 1.00 1.00 2.20 (H) 1.20 1.60 (H) 1.10 Paroxysmal atrial fibrillation Assessment & Plan (05/29/2023 8:18 AM FRUIT COORDINATOR): Paroxysmal atrial fibrillation (HCC) Class:Controlled Patient is followed for this problem by Cardiology last seen on 01/06/23. Normal rate and regular rhythm. Normal pulses. Normal heart sounds. Controlled with metoprolol, denies any side effects. Will reassess in 3 months. Currently takes: Metoprolol 25 mg po daily Assessment & Plan (02/18/2023 1:43 PM CDT): Paroxysmal atrial fibrillation (HCC) Class: Controlled Patient is followed for this problem by Cardiology last seen on 01/06/23. Normal rate and regular rhythm. Normal pulses. Normal heart sounds. Controlled with metoprolol, denies any side effects. Will reassess in 3 months. Currently takes: Metoprolol 25 mg po daily Assessment & Plan (11/12/2022 3:01 PM CDT): Paroxysmal atrial fibrillation (HCC) Class: Controlled Patient is followed for this problem by Cardiology last seen on 07/10/22.Normal rate and regular rhythm. Normal pulses. Normal heart sounds. Controlled with metoprolol, denies any side effects. Will reassess in 1 year. Currently takes: Metoprolol 25 mg po daily CAD, multiple vessel Assessment & Plan (05/29/2023 8:17 AM FRUIT COORDINATOR): CAD, multiple vessel Class: Patient is followed for this problem by Cardiology last seen on 01/06/23. Normal rate and regular rhythm. Normal pulses. Negative for chest pain. Will reassess in 3 months. Currently takes: Norvasc 10 mg po daily and Losartan 25 mg po daily Assessment & Plan (02/18/2023 3:30 PM CDT): CAD, multiple vessel Class:Stable Patient is followed for this problem by Cardiology last seen on 01/06/23. Normal rate and regular rhythm. Normal pulses. Negative for chest pain. Will reassess in 3 months. Currently takes: Norvasc 10 mg po daily and Losartan 25 mg po daily Assessment & Plan (11/13/2022 9:43 AM CDT): CAD, multiple vessel Class: Stable Patient is followed for this problem by Cardiology last seen on 07/10/22. Normal rate and regular rhythm. Normal pulses. Negative for chest pain. Will reassess in 1 year Currently takes: Norvasc 10 mg po daily and Losartan 25 mg po daily Other hyperlipidemia Assessment & Plan (05/29/2023 9:27 AM FRUIT COORDINATOR): Other hyperlipidemia Class: Uncontrolled Patient is followed for this problem by Cardiology, last seen on 07/10/22. Currently not on any medications. Will reassess in 3 months. Latest Reference Range & Units 05/10/22 11:06 Cholesterol <=200 mg/dL 217 (H) Cholesterol/HDL Ratio % 5.3 HDL >=40 mg/dL 41 LDL calculated <=100 mg/dL 126 (H) Triglycerides <150 mg/dL 250 (H) Assessment & Plan (02/18/2023 3:15 PM CDT): Other hyperlipidemia Class:Uncontrolled Patient is followed for this problem by Cardiology, last seen on 07/10/22. Currently not on any medications. Will reassess in 3 months. Latest Reference Range & Units 05/10/22 11:06 Cholesterol <=200 mg/dL 217 (H) Cholesterol/HDL Ratio % 5.3 HDL >=40 mg/dL 41 LDL calculated <=100 mg/dL 126 (H) Triglycerides <150 mg/dL 250 (H) Assessment & Plan (11/13/2022 9:59 AM CDT): Other hyperlipidemia Class: Uncontrolled Patient is followed for this problem by Cardiology, last seen on 07/10/22. Currently not on any medications. Will reassess in 1 year. Latest Reference Range & Units 10/11/15 08:30 03/16/18 09:55 01/18/21 08:39 05/10/22 11:06 Cholesterol <=200 mg/dL 157 160 227 (H) 217 (H) Cholesterol/HDL Ratio % 2.6 3.0 4.2 5.3 HDL >=40 mg/dL 61 53 54 41 LDL calculated <=100 mg/dL 89 93 144 (H) 126 (H) Triglycerides <150 mg/dL 37 70 143 250 (H) COPD (chronic obstructive pulmonary disease) Assessment & Plan (05/29/2023 8:32 AM FRUIT COORDINATOR): COPD (chronic obstructive pulmonary disease) ([facility]) Class: Controlled Patient is followed for this problem by PCP. Controlled with symbicort and albuterol Normal breath sounds. Will reassess in 3 months. Currently uses: Symbicort 160-4.5 mcg inhaler 2 puffs BID and Albuterol 90 mcg inhaler 2 puffs every 6 hours prn. Assessment & Plan (02/18/2023 3:11 PM CDT): COPD (chronic obstructive pulmonary disease) (HCC) Class:Controlled Patient is followed for this problem by PCP. Controlled with symbicort and albuterol denies any side effects, will continue current medication. Pulmonary effort is normal. Normal breath sounds. Negative for cough and shortness of breath. Will reassess in 3 months. Currently uses: Symbicort 160-4.5 mcg inhaler 2 puffs BID and Albuterol 90 mcg inhaler 2 puffs every 6 hours prn. Assessment & Plan (11/13/2022 9:56 AM CDT): COPD (chronic obstructive pulmonary disease) (HCC) Class: Controlled Pulmonary effort is normal. Normal breath sounds. Controlled with symbicort and albuterol, denies any side effects. Will reassess in 1 year. Currently uses: Symbicort 160-4.5 mcg inhaler 2 puffs BID and Albuterol 90 mcg inhaler 2 puffs every 6 hours prn. Bone cancer Overview (02/05/2024): sternum Current Treatment and Therapy Plans No current plan information found. Past Treatment and Therapy Plans No past plan information found. Lifetime Dose Tracking * Chemical Lifetime Dose Automatic Entry Manual Entr y Radiation 935.8 mGy 935.8 mGy 0 mGy Resolved Problems Problem Noted Date Diagnosed Date Resolved Date Ventral hernia without obstr uction or gangrene 11/23/2024 12/15/2024 Left lower lobe pneumonia 11/29/2021 Acute respiratory failure with hypoxia 11/29/2021 11/08/2022 Mediastinal adenopathy 03/30/202011/12 Overview (03/30/2020): Added automatically from request for surgery [id number] Gross hematuria 06/14/2019 11/13/2022 Pre-operative cardiovascular examination 11/05/2018 10/20/2020 Overview (11/05/2018): Added automatically from request for surgery [id number] Extreme hearing loss, right 04/08/2018 11/13/2022 Overview (07/28/2018): -controlled -no new complaints noted or voiced -continue current tx regimen -follows ENT for this issue -will reassess in 6 months at FU appt. Mixed conductive and sensori neural hearing loss of right ear 04/08/2018 11/13/2022 Overview (07/28/2018): -controlled -no new complaints noted or voiced -continue current tx regimen -follows ENT for this problem -will reassess in 6 months at FU appt. Dysfunction of both eustachian tubes 04/08/2018 11/13/2022 Overview (07/28/2018): -controlled -no new complaints noted or voiced -continue current tx regimen -follows ENT for this issue -will reassess in 6 months at FU appt. Assessment & Plan (05/05/2018 8:35 AM FRUIT COORDINATOR): He is better and will rtc prn Assessment & Plan (04/08/2018 7:52 AM FRUIT COORDINATOR): Begin medrol and flonase Biceps tendinitis of right shoulder 03/04/2017 10/29/2017 Arthritis of left shoulder region 08/19/2016 11/13/2022 Overview (03/25/2018): -controlled -no new complaints noted or voiced -continue current tx regimen -will reassess in 6 months at FU appt. Leg weakness, bilateral 12/29/201510/25 Overview (03/25/2018): -controlled -no new complaints noted or voiced -continue current tx regimen -will reassess in 6 months at FU appt. Cough due to BRENDA inhibitor 12/29/2015 0 07/27/2018 Overview (03/25/2018): -controlled -no new complaints noted or voiced -continue current tx regimen -will reassess in 6 months at FU appt. Cough due to angiotensin-con verting enzyme inhibitor 12/29/2015 07/27/2018 Overview (03/25/2018): -controlled -no new complaints noted or voiced -continue current tx regimen -will reassess in 6 months at FU appt. Bilious emesis 12/29/2015 03/04/2017 Hypertension, benign essenti al, goal below 140/90 10/09/2015 04/26/2022 Overview (07/28/2018): -controlled -no new complaints noted or voiced -continue current tx regimen -continue Norvasc 10 mg daily -will reassess in 6 months at FU appt. Special screening for malign ant neoplasm of prostate 10/09/2015 08/19/2016 Other bursal cyst, left wrist 10/09/2015 11/13/2022 Overview (03/25/2018): -controlled -no new complaints noted or voiced -continue current tx regimen -will reassess in 6 months at FU appt.
--- OUTSIDE RECORDS SUMMARY | 2025-05-16 18:00 | XMS_ITS | Encounter Summary ---
Author Organization [facility] Address [address] [facility] [place] [address] Phone Care Team Providers Care Holistic Specialist Name Role Phone Mitchell Enriquez BAKING ASSISTANT Primary Care Provider + Shae Nava RN Unavailable Unavail able Encounter Details Date Type Department Care Team (Late st Contact Info) Description 04/15/2025 Telephone [facility] [address] [place] [address] Mitchell Enriquez NP [address] [place] [id number] Social History Tobacco Use Types Packs/Day Years [...] on file Legal Sex Male 1:04 PM DOCTOR OF OPTOMETRY Gender Identity Not on file Sexual Orientation Not on file documented as of this encounter Miscellaneous Notes * Telephone Encounter - Yina Louise - 04/15/2025 1:34 PM CST Pt is out of zepbound and needing another box. [phone] Pharmacy [facility] OR OF OPTOMETRY documented in this encounter Plan of Treatment Upcoming Encounters Date Type Department Care Team (Late st Contact Info) Description 08/29/2025 2:45 PM CDT Office Visit [facility] [address] [place] [address] Estephanie Christie, Mitchell Rodriguez, BAKING ASSISTANT [address] [phone] 02/14/2026 1:40 PM CDT Post-Op Visit [facility] General Surgery [address] [place] [address] Luis Mckeon MD [address] Floor - Genral Surgery [place] [address] 05/24/2026 2:30 PM DOCTOR OF OPTOMETRY Appointment [facility] [address] [place] [address] Angel Bedoya MD [address] [facility] [address] Discharge Disposition: Home 07/24/2026 1:00 PM DOCTOR OF OPTOMETRY Office Visit [facility] Urology [address] [place] [address] Angel Bedoya MD [address] [facility] [address] [place] [id number] documented as of this encounter Goals Goal [...] CDT PHQ-2 Depression Total Score: 0 08/26/19 11:58 AM CDT documented as of this encounter Care Teams Holistic Specialist Relationship Specialty Start Date End Date Mitchell Enriquez NP [address] [place] [address] PCP - General Nurse Practitioner 11/29/21 Shae Naav, RN Analysis Engineer Registered Nurse 10/24/22 documented as of this encounter
--- OUTSIDE RECORDS SUMMARY | 2025-05-16 18:00 | XMS_ITS | Encounter Summary ---
Author Organization [facility] Address [address] [place] [address] Care Team Providers Care Cloth Bleaching Range Back Tender Name Role Phone Angel Chaidez MD Unavailable [phone] Encounter Details Date Type Department Care Team ([facility] st Contact Info) Description 08/09/2019 Outside Records [facility] [address] [facility] [place] [address] Interface, Provider Social History Tobacco Use Types Packs/Day Years Used Date Smoking Tobacco: Every Day Cigars Smokeless Tobacco: Never Alcohol Use Standard Drinks/Week Comments Yes 0 (1 standard drink = 0.6 oz pur e alcohol) AUDIT-C Answer Date Recorded Q1: How often do you have a drink containing alcohol? 4 or more times a week 08/04/2019 Q2: How many drinks containi ng alcohol do you have on a typical day when you are drinking? 1 or 2 0 Q3: How often do you have si x or more drinks on one occasion? Never 08/04/2019 Sex and Gender Information Value Date Recorded Sex Assigned at Not on file Legal Sex Male 10:05 PM CDT Gender Identity Not on file Sexual Orientation Not on file documented as of this encounter Plan of Treatment Not on file documented as of this encounter Visit Diagnoses Not on filedocumented in this encounter Care Teams Cloth Bleaching Range Back Tender Relationship Specialty Start Date End Date Angel Chaidez MD [address] [address] PCP - Insurance Family Medicine 05/26/19 documented as of this encounter
--- OUTSIDE RECORDS SUMMARY | 2025-05-16 18:00 | XMS_ITS | Clinical Summary ---
Author Organization [facility] Address [address] [place] [address] Care Team Providers Care Tree Warden Name Role Phone Angel Chaidez MD Unavailable [phone] Allergies Active Allergy Reactions Criticality Noted Date Comments Iodine And Iodide Containing Products Other (See Comments) 11/01/2016 Pt refused contrast, said that mri or ct contrast has made him sick in the past Lisinopril Other (See Comments) 12/29/2015 Tightness in chest Medications amLODIPine (NORVASC) 10 MG tablet TAKE ONE TABLET BY MOUTH ONCE DAILY 12/23/2016 Active meloxicam (MOBIC) 15 MG tablet Take 15 mg by mouth daily. Active diazePAM (VALIUM) 10 MG tablet Take 10 mg by mouth daily. Active oxyCODONE (ROXICODONE) 5 MG IR tab Take one tablet (5 mg total) by mouth every 6 (six) hours as needed for pain. 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 4 or more times a week 09/03/2019 Q2: How many drinks containi ng alcohol do you have on a typical day when you are drinking? 1 or 2 0 Q3: How often do you have si x or more drinks on one occasion? Never 09/03/2019 Health Literacy Answer Date Recorded Health Literacy 3 02/28/2021 CAGE Assessment Answer Date Recorded Alcohol Use 0 08/12/2022 Sex and Gender Information Value Date Recorded Sex Assigned at Not on file Legal Sex Male 10:05 PM CDT Gender Identity Not on file Sexual Orientation Not on file Last Filed Vital Signs Vital Sign Reading Time Taken Comments Blood Pressure 157/98 09/06/2019 7:39 AM CDT Pulse 89 09/06/2019 7:39 AM CDT Temperature 36.6 C (97.9 F) 09/06/2019 7:39 AM CDT Respiratory Rate 18 09/06/2019 7:39 AM CDT Oxygen Saturation 98% 09/06/2019 7:39 AM CDT Inhaled Oxygen Concentration - - Weight 87.2 kg (192 lb 3.2 oz) 09/06/2019 6:00 A M CDT bed scale Height 177.8 cm (5' 10 ) 09/03/2019 5:24 AM CDT Body Mass Index 27.58 09/03/2019 5:24 AM CDT Plan of Treatment Health Maintenance Due Date Last Done Comments COLONOSCOPY 1969 CT Colonography 1969 Colorectal Cancer Screening 1969 FIT DNA 1969 FIT 1969 Hepatitis C Screening 1969 SIGMOIDOSCOPY 1969 Anxiety Screening 1977 HIV Screening 1984 Depression Screening 12/31/1987 Hepatitis B Vaccine (1 of 3 - 19+ 3-dose series) 1988 Zoster Vaccine (1 of 2) 12/31/2019 Pneumococcal Vaccine 50+ (2 of 2 - PCV) 08/08/2021 08/08/2020 COVID-19 Vaccine (2024- season) 2025 05/10/2022, 04/24/2021, 10/02/2020, Additional history exists Influenza Series (#1) 2025 02/10/2023 , 05/10/2022, 04/24/2021, Additional history exists Lipid Panel 05/10/2027 05/10/2022 TDAP/DTaP/TD Vaccines (2 - Td or Tdap) 08/01/2029 08/02/2019 Meningococcal B Vaccine Aged Out No l onger eligible based on patient's age to complete this topic Insurance [employer] Advance Directives * Full Code (Latest Code Status on File) Date Activated Date Inactivated Comments 09/03/2019 11:47 AM 09/06/2019 9:59 PM * Full Code Date Activated Date Inactivated Comments 09/03/2019 7:03 AM 09/03/2019 11:46 AM * Full Code Date Activated Date Inactivated Comments 09/03/2019 5:13 AM 09/03/2019 7:03 AM * Full Code Date Activated Date Inactivated Comments 09/03/2019 5:13 AM 09/03/2019 5:13 AM Care Teams Tree Warden Relationship Specialty Start Date End Date Angel Chaidez MD [address] [address] PCP - Insurance Family Medicine 05/26/19
--- OUTSIDE RECORDS SUMMARY | 2025-05-16 18:00 | XMS_ITS | Encounter Summary ---
Author Organization [facility] Address [address] [place] [address] Phone Care Team Providers Care Shrimp Peeling Machine Operator Name Role Phone Angel Chaidez MD Primary Care Provider + Fiona Coffey LPN Unavailable [phone] Mary Ortega RN Unavailable Unavailab Mitchell Lazo NP Primary Care Provider + Misti Mensah RN Unavailable Shae Nava RN Unavailable Unavail able Encounter Details Date Type Department Care Team (Late st Contact Info) Description 04/05/2020 Intake Navigator [facility] [address] [address] Sheryl Rice RN [address] [address] Social History Tobacco Use Types Packs/Day Years Used Date Smoking Tobacco: Heavy Smoker Cigarettes 15 34.8 Started: 08/02/1990 Cigars Smokeless Tobacco: Never Alcohol Use Standard Drinks/Week Comments Yes 3 (1 standard drink = 0.6 oz pur e alcohol) Sex and Gender Information Value Date Recorded Sex Assigned at Not on file Legal Sex Male 1:04 PM PACKAGING SPECIALIST Gender Identity Not on file Sexual Orientation Not on file COVID-19 Exposure Response Date Recorded In the last month, have you been in contact with someone who was confirmed or suspected to have Coronavirus / COVID-19? No / Unsure 04/06/2020 7:41 AM PACKAGING SPECIALIST documented as of this encounter Plan of Treatment Upcoming Encounters Date Type Department Care Team (Late st Contact Info) Description 08/29/2025 2:45 PM CDT Office Visit [facility] [address] [facility] [place] [address] Estephanie Christie LPN Stokes, Phillip Wayne, ETHEL [address] [place] [address] 02/14/2026 1:40 PM CDT Post-Op Visit [facility] General Surgery [address] [place] [address] Luis Mckeno MD [address] Floor - [place] [address] 05/24/2026 2:30 PM PACKAGING SPECIALIST Appointment [facility] [address] [place] [address] Angel Bedoya MD [address] [facility] [place] [address] Discharge Disposition: Home 07/24/2026 1:00 PM PACKAGING SPECIALIST Office Visit [email or web address] Urology [address] [place] [address] Angel Bedoya MD [address] [facility] [place] [address] documented as of this encounter Goals Goal Patient Goal Type Associated Problems Recent Progress Patient-Stated? Author DIET: Will develop a DASH diet initial goal Diet Fiona Gooden LPN Regularly attend Narcotics Anonymous or Alcoholics Anonymous meetings Lifestyle No Amaya Patel LPN LIFESTYLE: Will quit smoking Lifestyle No Fiona Coffey LPN LIFESTYLE: Will encourage family members to quit smoking Lifestyle No Fiona Coffey LPN Maintain blood pressure control Preventative No Fiona Coffey LPN documented as of this encounter Visit Diagnoses Not on filedocumented in this encounter Additional Health Concerns Infection Onset Date Last Indicated Resolved Time COVID-19: Pending 07/02/2020 07/02/2020 07/03/2020 11:22 AM PACKAGING SPECIALIST COVID-19: Pending 07/29/2020 07/29/2020 07/30/2020 3:36 PM PACKAGING SPECIALIST COVID-19: Pending 06/13/2021 06/13/2021 06/13/2021 10:03 AM PACKAGING SPECIALIST COVID-19: Pending 01/22/2023 01/22/2023 01/22/2023 8:45 AM CDT Assessment Noted Time A fall risk assessment has been complete d for the patient 03/30/2020 3:11 PM PACKAGING SPECIALIST documented as of this encounter Care Teams Shrimp Peeling Machine Operator Relationship Specialty Start Date End Date Angel Chaidez MD [address] [place] [address] PCP - General Family Medicine 10/09/15 11/28/21 Mitchell Enriquez NP [address] [address] PCP - General Nurse Practitioner 11/29/21 Fiona Coffey LPN [address] [address] Esthetic Dermatologist Esthetic Dermatologist 11/12/17 08/06/20 Mary Ortega, RN Esthetic Dermatologist Esthetic Dermatologist 08/07/20 11/28/21 Misti Mensah, TANA [address] [place] [address] Esthetic Dermatologist Registered Nurse 11/29/21 11/11/22 Shae Nava, RN Esthetic Dermatologist Registered Nurse 10/24/22 documented as of this encounter
--- OUTSIDE RECORDS SUMMARY | 2025-05-16 18:00 | XMS_ITS | Clinical Summary ---
Author Organization [facility] Address [address] [facility] [place] [address] Phone Care Team Providers Care Application Security Developer Name Role Phone Vinnie Enriquezip Nash RN CASE MANAGER Primary Care Provider + Shae Nava RN Unavailable Unavail able Allergies Active Allergy Reactions Criticality Noted Date Comments Iodine And Iodide Containing Products Shortness Of Breath High 12/09/2024 Lisinopril Cough Low 12/09/2024 Medications ketoconazole (NIZORAL) 2 % shampooIndicatio ns:Tinea capitis Apply topically 2 (two) times a week 120 mL 5 08/27/19 25 026 Active buPROPion (WELLBUTRIN) 75 MG tablet Take one tablet (75 mg total) by mouth daily in the evening 30 tablet 2 09/04/19 25 Active metoprolol tartrate (LOPRESSOR) 25 MG tabletIndication s:Essential hypertension TAKE ONE TABLET BY MOUTH TWICE DAILY 60 tablet 5 10/20/19 25 Active methocarbamoL (ROBAXIN) 500 MG tablet Take one tablet (500 mg total) by mouth 3 (three) times a day as needed. 21 tablet 12/16/19 25 Active amLODIPine (NORVASC) 10 MG tabletIndication s:Primary hypertension TAKE ONE TABLET BY MOUTH ONCE A DAY FOR BLOOD PRESSURE 30 tablet 5 12/24/19 25 Active diazePAM (VALIUM) 10 MG tabletIndication s:Anxiety Take one tablet (10 mg total) by mouth nightly. 30 tablet 5 02/29/20 25 Active losartan (COZAAR) 25 MG tabletIndication s:Essential hypertension TAKE ONE TABLET BY MOUTH EVERY DAY 30 tablet 5 03/21/20 25 Active tirzepatide (ZEPBOUND) 7.5 mg/0.5 mL SolnIndications: Weight loss counseling, encounter for Inject 0.5 mL (7.5 mg total) under the skin every 7 days. 2 mL 05/13/20 25 Active tirzepatide, weight loss, (ZEPBOUND) 5 mg/0.5 mL pen Inject 0.5 mL (5 mg total) under the skin every 7 days. 2 mL 04/18/20 25 025 Discontinued Active Problems Problem Noted Date Diagnosed Date Encounter for screening colonoscopy 09/14/2024 Carpal tunnel syndrome on left 08/04/2023 Carpal tunnel syndrome of right wrist 06/11/2023 Depression, recurrent 02/10/2023 Assessment & Plan (05/29/2023 9:20 AM NUMERICAL ANALYSIS GROUP MANAGER): Depression, recurrent (HCC) Class: Stable Patient is [...] 01/08/2022 Assessment & Plan (05/29/2023 8:58 AM NUMERICAL ANALYSIS GROUP MANAGER): Bilateral leg pain Class: Stable Patient is [...] 11/30/2021 Assessment & Plan (05/29/2023 8:50 AM NUMERICAL ANALYSIS GROUP MANAGER): OMER (acute kidney injury) (HCC) Class: Stable [...] 18:02 08/03/20 03:13 08/04/20 02:40 08/05/20 05:31 03/14/21 05:32 08/07/20 03:08 10/16/20 13:55 10/17/20 07:44 [...] 11/30/2021 Assessment & Plan (05/29/2023 9:34 AM NUMERICAL ANALYSIS GROUP MANAGER): Shoulder bursitis Class: Stable Musculoskeletal: Negative. Normal [...] (02/27/2021): Added automatically from request for surgery [id number] Assessment & Plan (05/29/2023 8:36 AM NUMERICAL ANALYSIS GROUP MANAGER): Abnormal CT of the chest Class: Stable [...] 01/08/2021 Assessment & Plan (05/29/2023 9:43 AM NUMERICAL ANALYSIS GROUP MANAGER): Malaise and fatigue Class: Stable Patient is [...] 01/08/2021 Assessment & Plan (05/29/2023 9:33 AM NUMERICAL ANALYSIS GROUP MANAGER): Shortness of breath Class: Controlled Patient is [...] 10/16/2020 Assessment & Plan (05/29/2023 9:06 AM NUMERICAL ANALYSIS GROUP MANAGER): Chest pain Class: Stable Patient is followed [...] 08/02 Assessment & Plan (05/29/2023 9:31 AM NUMERICAL ANALYSIS GROUP MANAGER): S/P AAA (abdominal aortic aneurysm) repair Class: [...] 06/29/2020 Assessment & Plan (05/29/2023 8:17 AM NUMERICAL ANALYSIS GROUP MANAGER): Bicuspid aortic valve Class: Stable Patient is [...] 06/12/2020 Assessment & Plan (05/29/2023 8:18 AM NUMERICAL ANALYSIS GROUP MANAGER): Ascending aortic aneurysm (HCC) Class: Stable Patient [...] 01/24/2020 Assessment & Plan (05/29/2023 8:20 AM NUMERICAL ANALYSIS GROUP MANAGER): Xerostomia Class: Stable Patient was seen by Sleep Medicine for this problem, last seen on 07/17/20. Biotene over the counter to use at bedtime before PAP therapy for dry mouth symptoms. Use as directed. [place] or Gel seems to last longer than [...] for dry mouth symptoms. Use as directed. [place] or Gel seems to last longer than [...] adjust the humidifier, please call your local [employer] medical equipment company where you received your [...] 06/14/2019 Assessment & Plan (05/29/2023 9:30 AM NUMERICAL ANALYSIS GROUP MANAGER): Renal mass, left Class: Stable Patient is followed by Urology for this problem, last seen 11/18/22. Patient returns for follow-up. He had a left nephrectomy at [facility] that was difficult. This was done [...] 06/02/19. He underwent a L nephrectomy at [facility] on 09/03/19. Final pathology showed Clear [...] 06/02/19. He underwent a L nephrectomy at [facility] on 09/03/19. 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 The tumor was limited to the kidney. Margins were negative for carcinoma. Final stage pT2b cN0 cM0. Will reassess in 1 year. Obstructive sleep apnea 04/10/2019 Assessment & Plan (05/29/2023 8:35 AM NUMERICAL ANALYSIS GROUP MANAGER): Obstructive sleep apnea Class: Stable Patient is [...] 04/10/2019 Assessment & Plan (05/29/2023 9:22 AM NUMERICAL ANALYSIS GROUP MANAGER): Insomnia, psychophysiological Class: Stable Patient is followed [...] appt. Assessment & Plan (05/29/2023 9:21 AM NUMERICAL ANALYSIS GROUP MANAGER): Impacted cerumen of right ear Class: Stable [...] year. Assessment & Plan (04/08/2018 7:52 AM NUMERICAL ANALYSIS GROUP MANAGER): After informed consent was obtained, the patient [...] appt. Assessment & Plan (05/29/2023 8:19 AM NUMERICAL ANALYSIS GROUP MANAGER): Oronasal fistula Class: Stable Patient was seen for this problem by [facility] Otolaryngology, last seen on 03/27/17. No complaints or concerns, continue current regimen and keep all follow up appointments. Will reassess in 3 months Assessment & Plan (02/18/2023 1:44 PM CDT): Oronasal fistula Class: Stable Patient was seen for this problem by [facility] Otolaryngology, last seen on 03/27/17. No complaints or concerns, continue current regimen and keep all follow up appointments. Will reassess in 3 months. Assessment & Plan (11/12/2022 3:21 PM CDT): Oronasal fistula Class: Stable Patient was seen for this problem by [facility] Otolaryngology, last seen on 03/27/17. No [...] appt. Assessment & Plan (05/29/2023 8:23 AM NUMERICAL ANALYSIS GROUP MANAGER): Chronic sinusitis Class: Stable Patient is followed [...] appt. Assessment & Plan (05/29/2023 9:39 AM NUMERICAL ANALYSIS GROUP MANAGER): Ulnar nerve neuropathy Class: Stable Normal range [...] appt. Assessment & Plan (05/29/2023 8:55 AM NUMERICAL ANALYSIS GROUP MANAGER): Alcohol use Class: Uncontrolled Patient is followed [...] appt. Assessment & Plan (05/29/2023 9:34 AM NUMERICAL ANALYSIS GROUP MANAGER): Tobacco use Class: Stable Patient is followed [...] disease Assessment & Plan (05/29/2023 9:07 AM NUMERICAL ANALYSIS GROUP MANAGER): Chronic kidney disease Class: Stable Patient is [...] fibrillation Assessment & Plan (05/29/2023 8:18 AM NUMERICAL ANALYSIS GROUP MANAGER): Paroxysmal atrial fibrillation (HCC) Class:Controlled Patient is [...] vessel Assessment & Plan (05/29/2023 8:17 AM NUMERICAL ANALYSIS GROUP MANAGER): CAD, multiple vessel Class: Patient is followed [...] hyperlipidemia Assessment & Plan (05/29/2023 9:27 AM NUMERICAL ANALYSIS GROUP MANAGER): Other hyperlipidemia Class: Uncontrolled Patient is followed [...] disease) Assessment & Plan (05/29/2023 8:32 AM NUMERICAL ANALYSIS GROUP MANAGER): COPD (chronic obstructive pulmonary disease) (HCC) Class: Controlled Patient is followed for [...] hours prn. Bone cancer Overview (02/05/2024): sternum Resolved Problems Problem Noted Date Diagnosed Date Resolved Date Ventral hernia without obstr uction or gangrene 11/23/2024 12/15/2024 Left lower lobe pneumonia 11/29/2021 Acute respiratory failure with hypoxia 11/29/2021 11/08/2022 Mediastinal adenopathy 03/30/202011/12 Overview (03/30/2020): Added automatically from request for surgery [id number] Gross hematuria 06/14/2019 11/13/2022 Pre-operative cardiovascular examination 11/05/2018 10/20/2020 Overview (11/05/2018): Added automatically from request for surgery [id number] Extreme hearing loss, right 04/08/2018 11/13/2022 Overview [...] appt. Assessment & Plan (05/05/2018 8:35 AM NUMERICAL ANALYSIS GROUP MANAGER): He is better and will rtc prn Assessment & Plan (04/08/2018 7:52 AM NUMERICAL ANALYSIS GROUP MANAGER): Begin medrol and flonase Biceps tendinitis of [...] reassess in 6 months at FU appt. Encounters Date Type Department Care Team Description 05/15/2025 Refill [facility] [address] [place] [address] Mitchell Enriquez NP Essential hypertension 05/13/2025 Orders Only [facility] [address] [place] [address] Mitchell Enriquez NP Weight loss counseling, encounter for (Primary Dx) 05/13/2025 Telephone [facility] [address] [place] [address] Loraine Wallace CMA 04/18/2025 Orders Only [facility] [address] [place] [address] Mitchell Enriquez NP 04/15/2025 Telephone [facility] [address] [place] [address] Mitchell Enriquez NP 03/29/2025 Historic Scan Encounter [facility] [address] [place] [address] Mitchell Enriquez NP 03/20/2025 Refill [facility] [address] [place] [address] Mitchell Enriquez NP Essential hypertension (Primary Dx) 02/28/2025 2:00 PM CDT Office Visit [facility] [address] [facility] [address] [address] Mitchell Enriquez NP Primary hypertension (Primary Dx); PAF (paroxysmal atrial fibrillation) (HCC ); Tension headache; Centrilobular emphysema (HCC ); Anxiety; GABBY (obstructive sleep apnea); Screening PSA (prostate specific antigen); Immunization due; Other hyperlipidemia; Weight loss counseling, encounter for 02/28/2025 Historic Scan Encounter [facility] [address] [facility] [address] [place] [address] Mitchell Enriquez NP 02/22/2025 Travel from Last 3 Months Immunizations Immunization Administration Dates Next Due Influenza High Dose QS(PF) 0.7ML 02/15/2020 Influenza Inj. QIV (PF) 02/10/2023,05/10,04/24/2021,02/01,03/16/2018 Influenza Seasonal Inj. (PF) 02/28/2025,02/26/20 24 Influenza Vaccine (Split virus) 03/13/1993 PPD Test 03/04/2017 Pfizer-BioNTech COVID-19 Vaccine 04/24/2021,05,09/11/2020 Pfizer-BioNTech COVID-19 Vac cine 12Y+ Bivalent 05/10/2022 Pneumo Polysaccharide 23-valent 08/08/2020 Pneumococcal Conjugate 20-Valent 02/28/2025 Tdap 08/02/2019 Zoster Vaccine Recombinant 03/19/2024 Family History Medical History Relation Name Comments Cancer Brother COPD Father Cancer Father melanoma Colon polyps Father Hypertension Father Cancer Maternal Grandfather Heart failure Maternal Grandmother COPD Mother Cancer Mother lung Cataracts Mother Hypertension Mother Thyroid disease Paternal Grandmother Relation Name Status Comments Brother Alive Father Maternal Grandfather Maternal Grandmother Mother Paternal Grandmother Social History Tobacco Use Types Packs/Day Years Used Date Smoking Tobacco: Former Cigarettes 1.5 30 0 08/02/1990 - 08/02/2020 Cigars Smokeless Tobacco: Never Tobacco Cessation:Counseling Given: Not Answered Comments:smoked cigarettes x 20 yrs Alcohol Use [...] on file Legal Sex Male 1:04 PM NUMERICAL ANALYSIS GROUP MANAGER Gender Identity Not on file Sexual Orientation Not on file Last Filed Vital Signs Vital Sign Reading Time Taken Comments Blood Pressure 118/82 02/28/2025 1:41 PM CDT Pulse 80 02/28/2025 1:41 PM CDT Temperature 36.7 C (98.1 F) 12/15/2024 12:00 PM CDT Respiratory Rate 12 02/28/2025 1:41 PM CDT Oxygen Saturation 98% 02/09/2025 11:41 AM CDT Inhaled Oxygen Concentration - - Weight 106.6 kg (235 lb) 02/28/2025 1:41 PM CDT Height 177.8 cm (5' 10 ) 02/28/2025 1:41 PM CDT Body Mass Index 33.72 02/28/2025 1:41 PM CDT Plan of Treatment Upcoming Encounters Date Type Department Care Team (Late st Contact Info) Description 08/29/2025 2:45 PM CDT Office Visit [facility] [address] [facility] [address] [place] [address] Estephanie Christie, Mitchell Rodriguez, ETHEL [address] [place] [address] 02/14/2026 1:40 PM CDT Post-Op Visit [email or web address] General Surgery [address] [place] [address] Luis Mckeon MD [address] [place] [address] 05/24/2026 2:30 PM NUMERICAL ANALYSIS GROUP MANAGER Appointment [facility] [address] [place] [address] Angel Bedoya MD [address] [facility] [place] [address] Discharge Disposition: Home 07/24/2026 1:00 PM NUMERICAL ANALYSIS GROUP MANAGER Office Visit [facility] Urology [address] [place] [address] Angel Bedoya MD [address] [facility] [place] [address] Health Maintenance Due Date Last Done Comments Lipid Panel 02/25/2025 02/26/2024, 04/25, 01/18/2021, Additional history exists Annual Depression Screening 08/26/2025 04/0 07/2024, 08/26/2024, 08/26/2024, Additional history exists LFT 12/09/2025 12/09/2024, 07/25, 02/26/2024, Additional history exists BMI 02/28/2026 02/28/2025 Colonoscopy Every 5 Years 09/28/20272024, 11/16/2018, 11/16/2018 DTap/Tdap/Td Vaccines (2 - T d or Tdap) 08/01/2029 08/02/2019 COVID-19 Vaccine Discontinued 05/10/2022, , 10/02/2020, Additional history exists Welcome to Medicare (IPPE) G0402 Discontinued 11/09/19 23 Zoster Vaccine (Shingles) Discontinued 03/19/2024 Flu Vaccine Completed 02/28/2025, 07/2023, 02/10/2023, Additional history exists Influenza Vaccine Completed 02/28/2025, , 02/10/2023, Additional history exists Pneumococcal Vaccine Age 50+ Completed 02/28/2025, 08/08/2020 Pneumococcal Vaccine High Risk Completed 02/28/2025 , 08/08/2020 Hepatitis C Antibody Screen Discontinued Medicare Initial AWV G0438 Discontinued Goals Goal Patient Goal Type Associated Problems [...] pressure control Preventative No Fiona Coffey LPN Medical Devices Implanted Type Area Planning Coordinator Device Identifier Shelf Expiration Date Model / Serial / Lot Cath Balloon Chris-1351 - [id number] Implanted:Qt y: 1 on 04/06/2020 by Juan Hurtado MD at [facility] Cardiovascular N/A: Bronchus OLYC CHRIS-1351 / / Graft [address] [employer] - [id number] Implanted:Qt y: 1 on 08/02/2020 by Annmarie Johnson MD at [facility] Grafts- Vascular N/A: Abdomen MAQT 09/23/2023 [id number] / [id number] / Mesh [address] 10 X 15 - [id number] Implanted:Qt y: 1 on 12/15/2024 by Luis Mckeon MD at [facility] Mesh Products N/A: Abdomen BARD-DAVL [id number] 10/20/2026 [id number] / / [id number] 10 X 15 - [id number] Implanted:Qt y: 1 on 12/15/2024 by Luis Mckeon MD at [facility] Mesh Products N/A: Abdomen BARD-DAVL [id number] 02/20/2027 [id number] / / [id number] Clip Titanium Ligating Lg - [id number] Implanted:Qt y: 1 on 08/02/2020 by Anmnarie Johnson MD at [facility] Neurological N/A: Abdomen TLFX-PILW [id number] / / Plate 12-H Ladder 73-3353 - [id number] Implanted:Qt y: 1 on 08/02/2020 by Annmarie Johnson MD at [facility] Orthopedic Miscellaneous N/A: Sternum BIMT-MICR [id number] / / Plate 4-Hole Square 73-5303 - [id number] Implanted:Qt y: 1 on 08/02/2020 by Annmarie Johnson MD at [facility] Orthopedic Trauma N/A: Sternum BIMT-MICR 73-0372 / / Screw Locking 2.4x14mm 73-5296 - [id number] Implanted:Qt y: 16 on 08/02/2020 by Annmarie Johnson MD at [facility] Orthopedic Trauma N/A: Sternum BIMT-MICR [id number] / / Explanted Type Area Planning Coordinator Device Identifier Shelf Expiration Date Model / Serial / Lot Plate X4 Hole 73-0570 - [id number] Explanted:Qty : 1 on 08/02/2020 at [facility] Orthopedic Trauma N/A: Sternum BIMT-MICR [id number] / / Description:can not charge f or explant Procedures Procedure Name Priority Date/Time Associated Diagnosis Comments BASIC METABOLIC PANEL Routine 02/28/2025 2:53 PM CDT Primary hypertension PSA SCREENING Routine 02/28/2025 2:53 PM CDT Screening PSA (prostate specific antigen) COMPREHENSIVE METABOLIC PANEL Routine 12/09/2024 11:08 AM CDT Ventral hernia without obstruction or gangrene LIPID PANEL Routine 02/26/2024 11:42 AM CDT Mixed hyperlipidemia from Last 3 Months or Most Recently Relevant to Health Maintenance Results * PSA Screening (02/28/2025 2:53 PM CDT) PSA 2.71 <=4 ng/mL 03/01/2025 12: 05 PM CDT [facility] Blood Venipuncture / Unknown 02/28/2025 2:53 PM CDT 02/28/2025 2:53 PM CDT Mitchell Enriquez RN CASE MANAGER LAB BLOOD ORDERABLES Fin al Result [facility] [address] [place], [place] [id number] * (ABNORMAL) Basic Metabolic Panel (02/28/2025 2:53 PM CDT) Sodium 139 135 - 145 mmol/L 03/01/2025 11:42 AM CDT [facility] Potassium 4.1 3.5 - 5.0 mmol/L 03/01/2025 11:42 AM CDT [facility] Chloride 104 98 - 107 mmol/L 03/01/2025 11:42 AM CDT [facility] Carbon Dioxide 25 21 - 32 mmol/L 03/01/2025 11:42 AM CDT [facility] Anion Gap 10 6 - 16 mmol/L 03/01/2025 11:42 AM CDT [facility] Glucose 104 70 - 110 mg/dL 03/01/2025 11:42 AM CDT [facility] BUN 16 7 - 18 mg/dL 03/01/2025 11:42 AM CDT [facility] Creatinine 1.00 0.60 - 1.30 mg/dL 03/01/2025 11:42 AM CDT [facility] BUN/Creatinine Ratio 16.0(H) 11.7 - 13.9 03/01/2025 11:42 AM CDT [facility] Calcium 10.0 8.5 - 10.1 mg/dL 03/01/2025 11:42 AM CDT [facility] Comment:Calcium measurements are adversely affected by the use of Omniscan during MRI. Analysis of calcium is not recommended for 12 to 24 hours after the use of the contrast agent. eGFR 2020 CKD-EPI-cr 88.9 >60.0 mL/min/1.7 3m*2 03/01/2025 11:42 AM CDT [facility] Blood Venipuncture / Unknown 02/28/2025 2:53 PM CDT 02/28/2025 2:53 PM CDT us Mitchell Enriquez RN CASE MANAGER LAB BLOOD ORDERABLES Fin al Result [facility] [address] [phone] * (ABNORMAL) Comprehensive Metabolic Panel (12/09/2024 11:08 AM CDT) Sodium 143 135 - 145 mmol/L 12/09/2024 11:40 AM T [facility] Potassium 4.2 3.5 - 5.0 mmol/L 12/09/2024 11:40 AM CDT [facility] Chloride 108(H) 98 - 107 mmol/L 12/09/2024 11:40 AM CDT [facility] Carbon Dioxide 21 21 - 32 mmol/L 12/09/2024 11:40 AM CDT [facility] Anion Gap 14 6 - 16 mmol/L 12/09/2024 11:40 AM T [facility] Glucose 122(H) 70 - 110 mg/dL 12/09/2024 11:40 AM [facility] BUN 10 7 - 18 mg/dL 12/09/2024 11:40 AM [facility] Creatinine 1.06 0.60 - 1.30 mg/dL 12/09/2024 11:40 AM [facility] BUN/Creatinine Ratio 9.4(L) 11.7 - 13.9 12/09/2024 11:40 AM [facility] Calcium 9.6 8.5 - 10.1 mg/dL 12/09/2024 11:40 AM [facility] Comment:Calcium measurements are adversely affected by the use of Omniscan during MRI. Analysis of calcium is not recommended for 12 to 24 hours after the use of the contrast agent. Protein total 7.1 6.4 - 8.2 g/dL 12/09/2024 11:40 AM [facility] Albumin 3.5 3.4 - 5.0 g/dL 12/09/2024 11:40 AM [facility] Bilirubin Total 0.4 0.0 - 1.0 mg/dL 12/09/2024 11:40 AM [facility] AST 16 7 - 34 U/L 12/09/2024 11:40 AM [facility] ALT 16 16 - 62 U/L 12/09/2024 11:40 AM [facility] ALP 73 50 - 136 U/L 12/09/2024 11:40 AM [facility] eGFR 2020 CKD-EPI-cr 83.4 >60.0 mL/min/1.7 3m*2 12/09/2024 11:40 AM [facility] Blood Venipuncture / Unknown 12/09/2024 11:08 AM CDT 12/09/2024 11:18 AM CDT Luis Mckeon MD LAB BLOOD ORDERABL ES Final Result Performing Organization Address City/State/[facility] Co de Phone Number [facility] [address] [place], [place] [address] * (ABNORMAL) Lipid Panel (02/26/2024 11:42 AM CDT) Triglycerides 426(H) <150 mg/dL 02/26/2024 3:44 PM CDT [facility] Cholesterol 210(H) <=200 mg/dL 02/26/2024 3:44 PM CDT [facility] HDL 38(L) >=40 mg/dL 02/26/2024 3:44 PM CDT [facility] Cholesterol/HDL Ratio 5.5 % 02/26/2024 3:44 PM CDT [facility] Comment: Average coronary risk ratio for males: 4.97 (Human male up to 199 years) Average coronary risk ratio for females: 4.44 (Human male up to 199 years) LDL Calculated 02/26/2024 3:44 PM CDT [facility] Comment:Triglycerides >400 m ay render LDL and cardiac risk factors invalid. Blood Venipuncture / Unknown 02/26/2024 11:42 AM CDT 02/26/2024 11:42 AM CDT Mitchell Enriquez RN CASE MANAGER LAB BLOOD ORDERABLES Fin al Result Performing Organization Address [facility] Co de Phone Number [facility] [address] [place] [phone] from Last 3 Months or Most Recently Relevant to Health Maintenance Insurance [employer] MEDICARE [id number] Advance Directives For more information, please contact: [phone] (7AM - 5PM [facility], 7 days a week) * Full Code (Latest Code Status on File) Date Activated Date Inactivated Comments 12/15/2024 6:10 AM 12/15/2024 4:07 PM * Full Code Date Activated Date Inactivated Comments 09/27/2024 11:17 AM 09/27/2024 4:39 PM * Full Code Date Activated Date Inactivated Comments 08/28/2023 7:37 AM 08/28/2023 11:29 AM * Full Code Date Activated Date Inactivated Comments 06/19/2023 5:38 AM 06/19/2023 11:03 AM * DNR Date Activated Date Inactivated Comments 11/29/2021 6:36 PM 11/30/2021 7:23 PM Care Teams Application Security Developer Relationship Specialty Start Date End Date Mitchell Enriquez NP [address] [place] [id number] PCP - General Nurse Practitioner 11/29/21 Shae Nava, RN Policy Service Coordinator Registered Nurse 10/24/22
--- OUTSIDE RECORDS SUMMARY | 2025-05-16 18:00 | XMS_ITS | Encounter Summary ---
Author Organization [facility] Address [address] [place] [address] Care Team Providers Care Geriatric Psychiatrist Name Role Phone Angel Chaidez MD Unavailable [phone] Encounter Details Date Type Department Care Team ([facility] st Contact Info) Description 07/19/2019 Outside Records [facility] [address] [place] [address] Interface, Provider Social History Tobacco Use Types Packs/Day Years Used Date Smoking Tobacco: Every Day Smokeless Tobacco: Never Sex and Gender Information Value Date Recorded Sex Assigned at Not on file Legal Sex Male 10:05 PM CDT Gender Identity Not on file Sexual Orientation Not on file documented as of this encounter Plan of Treatment Not on file documented as of this encounter Visit Diagnoses Not on filedocumented in this encounter Care Teams Geriatric Psychiatrist Relationship Specialty Start Date End Date Angel Chaidez MD [address] [address] PCP - Insurance Family Medicine 05/26/19 documented as of this encounter
--- OUTSIDE RECORDS SUMMARY | 2025-05-16 18:00 | XMS_ITS | Encounter Summary ---
Author Organization [facility] Address [address] [facility] [place] [address] Care Team Providers Care Floor Winder Name Role Phone Angel Chaidez MD Unavailable [phone] Encounter Details Date Type Department Care Team ([facility] st Contact Info) Description 06/30/2019 Outside Records [facility] [address] [facility] [place] [address] Interface, Provider Social History Tobacco Use Types [...] on filedocumented in this encounter Care Teams Floor Winder Relationship Specialty Start Date End Date Angel Chaidez MD [address] [address] PCP - Insurance Family Medicine 05/26/19 documented as of this encounter
--- OUTSIDE RECORDS SUMMARY | 2025-05-16 18:00 | XMS_ITS | Encounter Summary ---
Author Organization [facility] Address [address] [facility] [place] [address] Phone Care Team Providers Care Sole Skiver Name Role Phone Angel Chaidez MD Primary Care Provider + Mary Ortega RN Unavailable Unavailab Mitchell Lazo NP Primary Care Provider + Misti Mensah RN Unavailable [phone] Shae Nava RN Unavailable Unavail able Reason for Visit * Reason Comments Medication Refill Encounter Details Date Type Department Care Team (Late st Contact Info) Description 11/20/2021 Refill [facility] [address] [place] [address] Mitchell Enriquez, ETHEL [address] [place] [id number] Social History Tobacco Use Types Packs/Day Years Used Date Smoking Tobacco: Former Cigarettes 1.5 30 0 08/02/1990 - 08/02/2020 Cigars Smokeless Tobacco: Never Comments:smoked cigarettes x 20 yrs Alcohol Use Standard Drinks/Week Comments Yes 1 (1 standard drink = 0.6 oz pur e alcohol) 1-2 BEERS NIGHTLY NEEDED Overall Financial Resource Strain (CARDIA) Answe r [...] on file Legal Sex Male 1:04 PM CATERING DIRECTOR Gender Identity Not on file Sexual Orientation Not on file COVID-19 Exposure Response Date Recorded In the last 10 days, have yo u been in contact with someone who was confirmed or suspected to have Coronavirus/COVID-19? No / Unsure 11/16/2021 10:12 AM CDT documented as of this encounter Plan of Treatment Upcoming Encounters Date Type Department Care Team (Late st Contact Info) Description 08/29/2025 2:45 PM CDT Office Visit [facility] [address] [facility] [address] [place] [address] Estephanie Christie, MANAGER TRANSFUSION Mitchell Enriquez, ETHEL [address] [place] [address] 02/14/2026 1:40 PM CDT Post-Op Visit [facility] General Surgery [address] [place] [address] Luis Mckeon MD [address] Floor - Genral Surgery [place] [address] 05/24/2026 2:30 PM CATERING DIRECTOR Appointment [facility] [address] [place] [address] Angel Bedoya MD [address] [place] [address] Discharge Disposition: Home 07/24/2026 1:00 PM CATERING DIRECTOR Office Visit [facility] Urology [address] [place] [address] Angel Bedoya MD [address] [place] [address] documented as of this encounter Goals Goal [...] Date Last Indicated Resolved Time COVID-19: Pending 01/22/2023 01/22/2023 01/22/2023 8:45 AM CDT Assessment Noted Time A fall risk assessment has been complete d for the patient 08/29/2021 7:42 AM CDT documented as of this encounter Care Teams Sole Skiver Relationship Specialty Start Date End Date Angel Chaidez MD [address] [place] [address] PCP - General Family Medicine 10/09/15 11/28/21 Mitchell Enriquez NP [address] [place] [address] PCP - General Nurse Practitioner 11/29/21 Mary Ortega, RN [employer] Helper 08/07/20 11/28/21 Misti Mensah, RN [address] [place] [address] Silica Dry Press Helper Registered Nurse 11/29/21 11/11/22 Shae Nava, RN [employer] Helper Registered Nurse 10/24/22 documented as of this encounter
[2025-05-16 18:16] LABS: Hematocrit 43.5 % (37-53); Hemoglobin 15.30 g/dL (11.27-16.99); Mean Corpuscular HGB Conc 35.2 g/dL (30-55); Mean Corpuscular Hemoglobin 31.5 pg (27-33); Mean Corpuscular Volume 89.5 fl (82-101); Nucleated Red Blood Cells % 0 %; Platelet Count 296 10^3/cmm (157-399); Red Blood Count 4.86 10^6/uL (3.85-5.65); White Blood Count 9.88 10^3/uL (3.29-11.43)
--- NOTE | 2025-05-16 18:17 | W.ED.OVERDOS ---
HPI - Overdose General: Chief Complaint: Overdose Stated Complaint: OD Time Seen by Provider: 05/16/25 17:52 History of Present Illness: 54-year-old male presents to the emergency room after taking multiple medications in an attempt to harm himself. He is upset because his is his. Cousin last night. He has had some kind of cancer in the past but due to some insurance issues they are no longer able to do routine monitoring of it. He is not currently getting any treatments. He is mildly agitated on arrival awake and alert vital signs are stable he said he took most of the medication just before arrival. He also took an undisclosed number of losartan and metoprolol. Related Data Home Medications ?Medication ?Instructions ?Recorded ?Confirmed amlodipine 10 mg tablet 10 mg PO DAILY 04/20/25 05/11/25 diazepam 10 mg tablet (Valium) 10 mg PO BID PRN 04/20/25 05/11/25 ketoconazole 2 % shampoo 1 applic topical Q14D 04/20/25 05/11/25 losartan 25 mg tablet 25 mg PO DAILY 04/20/25 05/11/25 metoprolol tartrate 25 mg tablet 25 mg PO BID 04/20/25 05/11/25 tirzepatide (weight loss) 2.5 mg SUBCUT 04/20/25 05/11/25 mg/0.5 mL subcutaneous pen injector (Zepbound) Allergies Allergy/AdvReac Type Severity Reaction Status Date / Time Iodinated Contrast Media Allergy anaphylaxis Verified 05/11/25 10:11 Review of Systems Const: Denies: fever(s) or chills Card: Denies: chest pain Resp: Denies: dyspnea GI: Denies: abdominal pain : Denies: dysuria, urinary frequency or urinary urgency Musc: Denies: neck pain or back pain Skin/Breast: Denies: rash PFSH ED PFSH: Social History Smoking and tobacco/nicotine status: former use of tobacco/nicotine Physical Exam Const: COMMON NORMALS: no acute distress GENERAL APPEARANCE: cooperative and comfortable ORIENTATION/CONSCIOUSNESS: Yes awake, Yes oriented to person, Yes oriented to place and Yes oriented to time HENMT: COMMON NORMALS: normocephalic, atraumatic and hearing grossly normal bilaterally HEAD & SCALP: normocephalic and atraumatic Resp: COMMON NORMALS: normal respiratory effort, No retractions, No use of accessory muscles and clear to auscultation bilaterally AUSCULTATION: clear to auscultation bilaterally Cardio: COMMON NORMALS: regular rate, regular rhythm and No murmurs present (Cardio) RATE: regular rate RHYTHM: regular rhythm GI: COMMON NORMALS: Soft to palpation and No hepatosplenomegaly present AUSCULTATION: Yes normoactive bowel sounds PALPATION: Yes Soft to palpation, No Tenderness to palpation present (GI), No Guarding due to palpation present (GI) and Yes No hepatosplenomegaly present Extremity: COMMON NORMALS: normal to inspection, capillary refill normal, no clubbing, cyanosis or edema, no calf tenderness and no pedal edema Neuro: SENSORIUM/ORIENTATION: Yes oriented to person, Yes oriented to place and Yes oriented to time Skin: COMMON NORMALS: no rashes or lesions noted GENERAL SKIN EXAM: no rashes or lesions noted Course Vital Signs: Vital signs: Vital Signs Temperature 97.2 F L 05/17/25 08:00 Pulse Rate 73 05/17/25 08:00 Respiratory Rate 16 05/17/25 08:00 Blood Pressure 127/93 05/17/25 08:00 Pulse Oximetry 98 05/17/25 08:00 Oxygen Delivery Me thod Room Air 05/17/25 08:00 MDM - Overdose Medical Decision Making Medical decision making Social determinants: Patient currently going through divorce recent loss of loved 1 very distraught I reviewed the patient's medical record. I reviewed the patient's current home meds. Alternate historians: None Differential diagnosis: Suicidal ideation, depression, multidrug overdose Lab Review: Labs CBC is normal chemistry panel unremarkable urine tox screen positive for opiates benzodiazepines and marijuana blood gas no acute findings Imaging: Chest x-ray no infiltrates no masses no cardiomegaly no increased pulmonary vasculature Assessment of risk Level of risk: High Hospitalization considerations: Admission for multidrug overdose suicidal ideation and attempt Reexamination: Stable no significant sedation at this time Assessment and plan: Will admit on 96-hour hold for multidrug overdose including benzodiazepines opiates and antihypertensive discussed with hospitalist orders written for the ICU. 96-hour hold completed. Also discussed with psychiatry they will see patient in the morning and reevaluate. Lab Data 05/17/25 06:46 05/17/25 06:46 Radiology Impressions Chest X-Ray 05/16/25 17:52 IMPRESSION: 1. No acute chest pathology identified. 2. Moderate age-appropriate degenerative spinal changes. Other chronic/non-acute findings as described above. Laboratory Results WBC 9.88 10^3/uL (3.29-11.43) 05/16/25 18:06 RBC 4.86 10^6/uL (3.85-5.65) 05/16/25 18:06 Hgb 15.30 g/dL (11.27-16.99) 05/16/25 18:06 Hct 43.5 % (37-53) 05/16/25 18:06 MCV 89.5 fl (82-101) 05/16/25 18:06 MCH 31.5 pg (27-33) 05/16/25 18:06 MCHC 35.2 g/dL (30-55) 05/16/25 18:06 RDW 11.8 % (12.1-15.1) L 05/16/25 18:06 Plt Count 296 10^3/cmm (157-399) 05/16/25 18:06 MPV 10.0 fL (7.4-10.4) 05/16/25 18:06 Neut % (Auto) 55.1 % 05/16/25 18:06 Lymph % (Auto) 34.2 % 05/16/25 18:06 [place] % (Auto) 8.3 % 05/16/25 18:06 Eos % (Auto) 0.9 % 05/16/25 18:06 Baso % (Auto) 1.1 % 05/16/25 18:06 Neut # (Auto) 5.44 10^3/uL (1.8-7.7) 05/16/25 18:06 Lymph # (Auto) 3.4 10^3/uL (0.8-4.8) 05/16/25 18:06 [place] # (Auto) 0.8 10^3/uL (0.2-0.9) 05/16/25 18:06 Eos # (Auto) 0.1 10^3/uL (0.0-0.8) 05/16/25 18:06 Baso # (Auto) 0.1 10^3/uL (0.0-0.1) 05/16/25 18:06 Nucleated RBC % (auto) 0 % 05/16/25 18:06 Nucleated RBCs # 0.0 /100WBC 05/16/25 18:06 Specimen Type Arterial 05/16/25 17:46 Sample Site Radial, right 05/16/25 17:46 ABG pH 7.40 (7.35-7.45) 05/16/25 17:46 ABG pCO2 37.4 mmHg (35-45) 05/16/25 17:46 ABG pO2 77.6 mmHg (80.0-100.0) L 05/16/25 17:46 ABG PO2/FiO2 Ratio 369 05/16/25 17:46 ABG HCO3 23.0 mmol/L (22-26) 05/16/25 17:46 ABG O2 Saturation 96.3 05/16/25 17:46 ABG Base Excess -1.5 mmol/L (-2.0-2.0) 05/16/25 17:46 Shaggy Test Pos 05/16/25 17:46 A-a O2 Gradient 3.3 mmHg (5-10) L 05/16/25 17:46 Hematocrit 48.2 % (42-52) 05/16/25 17:46 Hgb O2 Saturation 95.0 % (95-100) 05/16/25 17:46 Carboxyhemoglobin 1.2 %THgb (0.4-20.1) 05/16/25 17:46 Methemoglobin 0.1 % (0.4-1.5) L 05/16/25 17:46 Total Hemoglobin 15.7 g/dL (14-18) 05/16/25 17:46 Sodium 143.0 mmol/L (131-143) 05/16/25 17:46 Potassium 4.0 mmol/L (3.5-5.0) 05/16/25 17:46 Glucose 89.0 mg/dL (70-115) 05/16/25 17:46 Ionized Calcium 1.2 mmol/L (1.1-1.4) 05/16/25 17:46 O2 Delivery Device Room air 05/16/25 17:46 FiO2 21.0 % 05/16/25 17:46 Launch Operator ID Gl 05/16/25 17:46 Sodium 139 mmol/L (136-145) 05/16/25 18:06 Potassium 4.0 mmol/L (3.5-5.1) 05/16/25 18:06 Chloride 102 mmol/L (98-107) 05/16/25 18:06 Carbon Dioxide 24 mmol/L (22-29) 05/16/25 18:06 Anion Gap 17.0 (5-19) 05/16/25 18:06 BUN 12 mg/dL (6-20) 05/16/25 18:06 Creatinine 1.1 mg/dL (0.7-1.2) 05/16/25 18:06 GFR Calculation 69.5 mL/min (90-130) L 05/16/25 18:06 Glucose 87 mg/dL (65-115) 05/16/25 18:06 Calculated Osmolality 287 mOsm/kg (285-295) 05/16/25 18:06 Calcium 9.8 mg/dL (8.5-10.5) 05/16/25 18:06 Magnesium 2.1 mg/dL (1.7-2.3) 05/16/25 18:06 Total Bilirubin 0.6 mg/dL (0.15-1.2) 05/16/25 18:06 AST 16 U/L (0-40) 05/16/25 18:06 ALT 15 U/L (0-41) 05/16/25 18:06 Alkaline Phosphatase 94 U/L (40-130) 05/16/25 18:06 Creatine Kinase 60 U/L (39-308) 05/16/25 18:06 Total Protein 8.0 g/dL (6.6-8.7) 05/16/25 18:06 Albumin 4.8 g/dL (3.5-5.2) 05/16/25 18:06 Globulin 3.2 g/dL (1.3-4.6) 05/16/25 18:06 Lipase 175 U/L (13-60) H 05/16/25 18:06 TSH 1.61 uIU/mL (0.27-4.20) 05/16/25 18:06 Salicylates < 0.3 mg/dL (3-10) L 05/16/25 18:06 Acetaminophen < 5.0 ug/mL (10-30) L 05/16/25 18:06 All radiology interpretation(s) finalized by discharge EKG Data EKG 1: I personally reviewed and interpreted this EKG as follows: Interpretation: EKG 05/16/2025 1827 sinus rhythm rate of 71 SC interval [address] QTc [address] changes noted no previous EKGs available for comparison. No STEMI Discharge Plan Discharge Patient Disposition: Admitted As Inpatient Admit Provider: Antione Orozco Clinical Impression: Drug overdose, Suicide attempt by multiple drug overdose, Personal history of renal cancer Condition: Stable Coding Level of Care Code ED Baler for Yeni Tijerina
--- NOTE | 2025-05-16 18:18 | PC.NURSE ---
Pt was read his 96 hour hold rights at this time. Security present
[2025-05-16 18:31] LABS: Alanine Aminotransferase 15 U/L (0-41); Albumin Level 4.8 g/dL (3.5-5.2); Alkaline Phosphatase 94 U/L (40-130); Anion Gap 17.0 (5-19); Aspartate Amino Transferase 16 U/L (0-40); Blood Urea Nitrogen 12 mg/dL (6-20); Calcium 9.8 mg/dL (8.5-10.5); Carbon Dioxide 24 mmol/L (22-29); Chloride 102 mmol/L (98-107); Globulin 3.2 g/dL (1.3-4.6); Glucose 87 mg/dL (65-115); Lipase 175 U/L (13-60); Magnesium 2.1 mg/dL (1.7-2.3); Osmolality Calculated 287 mOsm/kg (285-295); Potassium 4.0 mmol/L (3.5-5.1); Sodium 139 mmol/L (136-145); Total Protein 8.0 g/dL (6.6-8.7)
[2025-05-16 18:32] LABS: Acetaminophen < 5.0 ug/mL (10-30); Salicylate < 0.3 mg/dL (3-10)
--- NOTE | 2025-05-16 18:47 | PM.HP ---
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 The patient reported having emotional distress since he is undergoing divorce with his partner and also some other social issues. The patient labs and vitals look grossly normal on presentation in the ER. Patient to be admitted in ICU for monitoring due to overdose with 96 hours hold. There is no currently chest pain, chest pressure, abdominal pain diarrhea nausea or vomiting or any altered mentation. Rest of review of system is unremarkable Review of Systems General: Reports: 10 or more systems reviewed and unremarkable except in HPI and below Medications/Allergies Home Medications ?Medication ?Instructions ?Recorded ?Confirmed ?Last Taken ?Type amlodipine 10 mg tablet 10 mg PO DAILY 04/20/25 05/17/25 Unknown History diazepam 10 mg tablet (Valium) 10 mg PO BID PRN Anxiety 04/20/25 05/17/25 Unknown History ketoconazole 2 % shampoo 1 applic topical Q14D 04/20/25 05/17/25 Unknown History losartan 25 mg tablet 25 mg PO DAILY 04/20/25 05/17/25 Unknown History metoprolol tartrate 25 mg tablet 25 mg PO BID 04/20/25 05/17/25 Unknown History tirzepatide (weight loss) 5 mg/0.5 5 mg SUBCUT Q7D 05/17/25 05/17/25 Unknown History mL subcutaneous pen injector (Zepbound) tirzepatide (weight loss) 7.5 7.5 mg SUBCUT Q7D 05/17/25 05/17/25 Unknown History mg/0.5 mL subcutaneous pen injector (Zepbound) Allergies Allergy/AdvReac Type Severity Reaction Status Date / Time Iodinated Contrast Media Allergy anaphylaxis Verified 05/11/25 10:11 PFSH Acute PFSH: Social History Smoking and tobacco/nicotine status: former use of tobacco/nicotine Vitals/I&O/Wt Last Vital Signs Temp 97.6 F 05/16/25 17:54 Pulse 66 05/16/25 18:39 Resp 16 05/16/25 18:39 BP 132/95 05/16/25 18:39 Pulse Ox 96 05/16/25 18:39 O2 Del Method Room Air 05/16/25 18:39 Weight last 48 hrs Weight 102.058 kg Physical Exam Narrative: General: Alert and oriented, lying comfortably without any distress HEENT: Normocephalic, atraumatic, grossly unremarkable exam Cardio: normal rate rhythm, normal S1-S2 without any murmurs, rubs, or gallops and JVD normal Respiratory: normal vascular breathing on auscultation without any wheezes, stridor, rhonchi GI: Abdomen soft, nontender, nondistended, normoactive bowel sounds present all 4 quadrants, Neuro: intact cranial nerves motor and sensory and cerebellar/coordination function without any focal neurological deficit Behavior: Appropriate and cooperative Extremities: Adequate palpable pulses, no edema or cyanosis observed Skin: grossly unremarkable exam Data 05/17/25 06:46 05/17/25 06:46 Micro: Microbiology 05/16/25 18:20 Blood Culture - Preliminary Blood SPECIMEN COLLECTED 05/16/25 18:17 Blood Culture - Preliminary Blood SPECIMEN COLLECTED A&P Assessment and plan 1. Suicide attempt by multiple drug overdose: Continue to monitor in the ICU, Labs with electrolytes monitoring and correction to be applied Suicide, elopement, seizure precautions Telemetry monitoring Frequent neurochecks Monitor hemodynamics Intake and output monitoring 2. Bone cancer: Stable, following with hematology/oncology Follow-up with oncologist at the time of discharge 3. Cancer of left kidney: As mentioned above PDMP PDMP Reviewed: Not Reviewed Attestations Medical Necessity Statement*: Patient will stay more than 2 midnights in the hospital with current ICU monitoring for intentional overdose of multiple drugs and later to involve psychiatry for further management of care Time Spent in Patient Care: 16 - 35 minutes (>than 50% of time spent in counselling and/or direct pt care on unit). Critical Care Time: The high probability of a clinically significant, sudden or life threatening deterioration, as referenced in this documentation, required my full and direct attention, intervention and personal management. The critical care time shown is in addition to time spent performing any reported separately billable procedures and includes the following: [x] Data and vital sign review and interpretation [x] Patient assessment, examination and intervention [x] Medication orders and management [x] Patient/Family updates as able [x] Care Coordination and Documentation. Critical Care Time (min): 35 Other Attestations: Patient condition has been discussed at length with the patient/family, I have independently reviewed the chart labs imaging/diagnostics/EKG. the goals of care and code status with the patient/family/NOK/legal pharmacy services representative, and documented accordingly. I have reconciled the medications after confirmation/comorbidities/current clinical condition. The management has been done according to the current clinical condition with respect to patient goals of care and based on recommendations/guidelines. The patient/family has been informed about the current condition and further plan of care. Agreed with the plan of care and understood without any language barrier. Every effort was made to ensure accuracy of hog operator. Any obvious errors or omissions should be clarified with the author of the document. Coding Level of Care Code Critical Care >/= 30 minutes Diagnoses Suicide attempt by multiple drug overdose T50.912A Bone cancer C41.9 Cancer of left kidney C64.2
[2025-05-16] MEDS: heparin 5,000 unit/mL INJ 1 mL 5000 UNIT SUBCUT (19:14)
[2025-05-16 19:29] LABS: Glucose Urine UA Negative (Normal); Nitrate Urine Negative (Negative); Specific Gravity, Urine 1.016 (1.005-1.030)
[2025-05-16 19:33] LABS: Add Urine Microscopic? YES
[2025-05-16 19:38] LABS: PCP Screen Urine Negative (Negative)
[2025-05-16 20:29] LABS: Thyroid Stimulating Hormone 1.61 uIU/mL (0.27-4.20)
--- NOTE | 2025-05-16 23:17 | PC.NURSE ---
Pt belongings in ICU locker #3
[2025-05-17] VITALS (16 sets, daily range): BP systolic 86–131; BP diastolic 51–93; PULSE 57–96; RESP 11–19; TEMP 36.2–36.7; O2SAT 91–98
[2025-05-17] MEDS: heparin 5,000 unit/mL INJ 1 mL 5000 UNIT SUBCUT (05:57)
--- NOTE | 2025-05-17 06:45 | PC.NURSE ---
Report received from ER nurse, TANA Saleem. In telephone report, Harper stated pt was being admitted because he took approx. 10 valium and 3 norco. The doctor notes state pt had OD's on an unknown number of losartan and metoprolol. Harper stated it was possible pt took all 4 medications. This nurse asked if poison control had been called. Harper stated ER dr had contacted poison control and that This nurse did not need to contact them. There is not any notation in the chart that this call had taken place. Pt arrived alert and oriented X4. Pt was calm, but tearful overnight. Pt c/o headache and being unable to sleep. Acetaminophen was given (see MAR) and pt was educated on why he was currently unable to get any medicine that would help him relax or sleep.
[2025-05-17 07:01] LABS: Hematocrit 37.4 % (37-53); Hemoglobin 12.70 g/dL (11.27-16.99); Mean Corpuscular HGB Conc 34.0 g/dL (30-55); Mean Corpuscular Hemoglobin 31.1 pg (27-33); Mean Corpuscular Volume 91.4 fl (82-101); Nucleated Red Blood Cells % 0 %; Platelet Count 244 10^3/cmm (157-399); Red Blood Count 4.09 10^6/uL (3.85-5.65); White Blood Count 7.01 10^3/uL (3.29-11.43)
[2025-05-17 07:21] LABS: Alanine Aminotransferase 13 U/L (0-41); Albumin Level 4.0 g/dL (3.5-5.2); Alkaline Phosphatase 75 U/L (40-130); Anion Gap 12.5 (5-19); Aspartate Amino Transferase 13 U/L (0-40); Blood Urea Nitrogen 13 mg/dL (6-20); Calcium 9.1 mg/dL (8.5-10.5); Carbon Dioxide 25 mmol/L (22-29); Chloride 107 mmol/L (98-107); Globulin 2.3 g/dL (1.3-4.6); Glucose 93 mg/dL (65-115); Osmolality Calculated 290 mOsm/kg (285-295); Potassium 4.5 mmol/L (3.5-5.1); Sodium 140 mmol/L (136-145); Total Protein 6.3 g/dL (6.6-8.7)
--- NOTE | 2025-05-17 09:33 | PC.NURSE ---
Dr. Hatch to bedside talking with patient.
--- NOTE | 2025-05-17 11:23 | W.PM.NPUH&PS ---
Providers/Chief Complaint Admitting Physician: Antione Orozco MD Primary Care Provider: Yelena Lorenz Chief Complaint: OD HPI NPU History of Present Illness Angel Singh is a 54 year old male with no prior history of inpatient psychiatric hospitalization who presented to the emergency department after overdosing on multiple medications with a desire to . Patient was admitted to the intensive care unit for monitoring on 05/16/2025 on an involuntary hold. The patient reports that he has been having significant stressors including financial stressors and increased tension between the patient and his of 16 years. He had stated that he may be undergoing a divorce and reports that he had felt hopeless about his situation. He reports that he has multiple medical issues including sleep apnea, clear-cell carcinoma of the kidney, and AAA repair and has chronic worries about dying. He reports that he had not been thinking about suicide until yesterday. He does report that he has been more depressed. He reports having no change in appetite. He does endorse anhedonia. He reports that he struggles with falling asleep and staying asleep. He reports chronic pain issues. He reports being more tearful recently and reports being more depressed for weeks at a time. He had reported no prior history of treatment for depression with therapy or medications. He reports that he struggles with controlling his worry and states that his worry is often out of control. He reports that he is struggling with concentration and reports that he does not feel rested with complaints of low energy. He reports that he feels as if his mind is always focused on a variety of different worries particularly when trying to fall asleep at night. He denies any history of mahad. He reports that his worries often lead to him having more tension. He reports that he had recently been prescribed Valium 10 mg at night for sleep for more than a year. He denies any significant drug or alcohol abuse. Patient had reported having taken several medications some of which were not his own. He had tested positive for opiates, benzodiazepines, and marijuana on urine drug screen here. He had denied any history of mahad. He denied any history of psychosis. He had denied any paranoia. He denied any symptoms suggestive of PTSD. He had reported increased isolation but did not endorse any clear history of social phobia. He reports use of marijuana medicinally for managing pain. The patient had reported that his cousin had of cancer a few days prior to admission and had reported that it had made him more sad over the past 1 to 2 days. Inpatient psychiatric history: None Outpatient psychiatric history: None Substance abuse history: He reports occasional marijuana use and occasional alcohol use but reports no history of drug or alcohol abuse nor any history of drug or alcohol treatment. Medical history: Renal cell carcinoma, nephrectomy, history of aortic dissection, history of AAA repair, history of sleep apnea on CPAP Allergies: Contrast dye Medications: Diazepam 10 mg at night, losartan, metoprolol, Zepbound for weight loss Family psychiatric history: Cousin with depression and completed suicide, alcoholism reported on both sides of the family. history: None reported Legal history: None Social history: Patient had no history of problems with learning. He had graduated high school and had 1 year of college. He reports that he was raised by his biological parents and reported no prior history of trauma while growing up in [place]. He reports having a younger brother and an older brother. He reports that both of his parents in their 50s. He reports that he is disabled for medical reasons. 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 He is currently not working. Meds NPU Home Medications ?Medication ?Instructions ?Recorded ?Confirmed ?Last Taken ?Type amlodipine 10 mg tablet 10 mg PO DAILY 04/20/25 05/17/25 Unknown History diazepam 10 mg tablet (Valium) 10 mg PO BID PRN Anxiety 04/20/25 05/17/25 Unknown History ketoconazole 2 % shampoo 1 applic topical Q14D 04/20/25 05/17/25 Unknown History losartan 25 mg tablet 25 mg PO DAILY 04/20/25 05/17/25 Unknown History metoprolol tartrate 25 mg tablet 25 mg PO BID 04/20/25 05/17/25 Unknown History tirzepatide (weight loss) 5 mg/0.5 5 mg SUBCUT Q7D 05/17/25 05/17/25 Unknown History mL subcutaneous pen injector (Zepbound) tirzepatide (weight loss) 7.5 7.5 mg SUBCUT Q7D 05/17/25 05/17/25 Unknown History mg/0.5 mL subcutaneous pen injector (Zepbound) Allergies Allergy/AdvReac Type Severity Reaction Status Date / Time Iodinated Contrast Media Allergy anaphylaxis Verified 05/11/25 10:11 PFSH NPU PFSH: Social History Smoking and tobacco/nicotine status: former use of tobacco/nicotine Mental Status Exam MSE Comments: The patient was lying in the ICU bed and was pleasant and cooperative on interview. He appeared in mild to moderate distress. His gait was not tested. His hygiene appeared fair. There was no evidence of any abnormal involuntary motor movements, tics, or tremors appreciated. There was considerable psychomotor retardation that was present. His speech was normal in regards to rate, rhythm, and prosody. His mood was described as depressed and anxious. His affect was mood congruent and restricted in range. He was tearful at times during the interview. His thought process was linear, logical, and goal-directed. His thought content endorsed suicidal ideation while acknowledging his suicide attempt via overdose. He denied any homicidal ideation. He did not appear to be responding to internal stimuli. There was no evidence of any delusional thinking. He denied any current auditory or visual hallucinations. He was alert and oriented to person, place, time, and situation. His recent and remote memory appeared fair. His insight was fair. His judgment was poor. His impulse control appeared poor. Vitals/I&O/Wt Last Vital Signs Temp 97.2 F L 05/17/25 08:00 Pulse 66 05/17/25 10:00 Resp 15 05/17/25 10:00 BP 110/76 05/17/25 10:00 Pulse Ox 96 05/17/25 10:00 O2 Del Method Room Air 05/17/25 10:00 05/16/25 05/17/25 05/17/25 22:59 06:59 14:59 Intake Total 1000 / 1000 1187.5 / 1187.5 Output Total 300 / 300 Balance 1000 / 1000 887.5 / 887.5 Weight last 48 hrs Weight 102.6 kg Weight 102.058 kg Data NPU 05/17/25 06:46 05/17/25 06:46 Micro: Microbiology 05/16/25 18:20 Blood Culture - Preliminary Blood SPECIMEN COLLECTED 05/16/25 18:17 Blood Culture - Preliminary Blood SPECIMEN COLLECTED Microbiology 05/16/25 18:20 Blood Blood Culture - Preliminary SPECIMEN COLLECTED 12/22/25 18:17 Blood Blood Culture - Preliminary SPECIMEN COLLECTED A&P Assessment and plan 1. MDD (major depressive disorder), single episode, severe: 2. CORINA (generalized anxiety disorder): 3. Suicide attempt by multiple drug overdose: Plan: 54-year-old male currently in ICU admitted with overdose with suicidal intent currently on a 96-hour hold. Patient admits to being depressed and has no prior history of treatment. Once stabilized the patient will be admitted involuntarily to the neuropsychiatric unit for further evaluation and treatment. #1.? Engage patient in individual milieu and group therapy. #2?? Recommend sober living treatment at the highest level of care to which the patient is willing to commit #3???Will start zoloft 25mg daily with plan to titrate upwards to target anxiety and depression. ? #4?? TO-15 minute checks? #5?? Will attempt to gather collateral information, transfer to NPU once stabilized. PDMP PDMP Reviewed: Not Reviewed Involuntary Hold Information Hold Status: Date/Time Hold Expires: 05/24/25 @ 1800 Attestations NPU Medical Necessity Statement*: Inpatient psychiatric hospitalization is medically necessary and deemed to be the clinically appropriate intervention upon transfer from ICU/Medical unit. Medications will be initiated and adjusted as clinically indicated.? The patient will be hospitalized for at least 2 midnights.? The patient?s likely length of stay is 5-7 days.? Coding Level of Care Code Acute Code for [facility] Fwd Diagnoses MDD (major depressive disorder), single episode, severe F32.2 CORINA (generalized anxiety disorder) F41.1 Suicide attempt by multiple drug overdose T50.912A
--- NOTE | 2025-05-17 12:39 | PC.NURSE ---
Report called to NPU. Notified patients woody Brown and patients Fabian that patient will be transferred to NPU room 153.
--- NOTE | 2025-05-17 12:55 | PC.NURSE ---
Transferred to NPU via wheelchair with security accompaniment.
--- NOTE | 2025-05-17 17:35 | P.PN_ITS ---
Subjective 2 Subjective: the patient was seen in the morning, doing well psych on board did not voice any psychotic features or any hallucinations having mild muscular pain on the chest since he has history of metastatic bone disease and use to happen before that goes away with tylenol Vitals/I&O/Wt Last Vital Signs Temp 98.0 F 05/17/25 14:00 Pulse 96 05/17/25 14:00 Resp 16 05/17/25 14:00 BP 125/80 05/17/25 14:00 Pulse Ox 95 05/17/25 14:00 O2 Del Method Room Air 05/17/25 14:00 05/17/25 05/17/25 05/17/25 06:59 14:59 22:59 Intake Total 1671.25 / 1671.25 Output Total 300 / 300 Balance 1371.25 / 1371.25 Weight last 48 hrs Weight 102.6 kg Weight 102.058 kg Physical Exam 2 Narrative: General: Alert and oriented, lying comfortably without any distress HEENT: Normocephalic, atraumatic, grossly unremarkable exam Cardio: normal rate rhythm, normal S1-S2 without any murmurs, rubs, or gallops and JVD normal Respiratory: normal vascular breathing on auscultation without any wheezes, stridor, rhonchi GI: Abdomen soft, nontender, nondistended, normoactive bowel sounds present all 4 quadrants, Neuro: intact cranial nerves motor and sensory and cerebellar/coordination function without any focal neurological deficit Behavior: Appropriate and cooperative Extremities: Adequate palpable pulses, no edema or cyanosis observed Skin: grossly unremarkable exam Data 05/17/25 06:46 05/17/25 06:46 Micro: Microbiology 05/16/25 18:20 Blood Culture - Preliminary Blood SPECIMEN COLLECTED 05/16/25 18:17 Blood Culture - Preliminary Blood SPECIMEN COLLECTED A&P Assessment and plan 1. Suicide attempt by multiple drug overdose: patient labs and diagnostics reviewed, psych transfer hold anti HTN meds at the moment as the patient BP is in the normal range, and consider adding later based on BP readings Suicide, elopement, seizure precautions Telemetry monitoring Frequent neurochecks Monitor hemodynamics Intake and output monitoring 2. Bone cancer: Stable, following with hematology/oncology Follow-up with oncologist at the time of discharge 3. Cancer of left kidney: As mentioned above PDMP PDMP Reviewed: Not Reviewed Attestations 2 Medical Necessity Statement*: patient stable to be admitted under psych for further management as primary team and stay in the hosp as per discretion of the psych team Time Spent in Patient Care: 16 - 35 minutes (>than 50% of time sp ent in counselling and/or direct pt care on unit) . Other Attestations: Patient condition has been discussed at length with the patient/family, I have independently reviewed the chart labs imaging/diagnostics/EKG. the goals of care and code status with the patient/family/NOK/legal artists' booking representative, and documented accordingly. I have reconciled the medications after confirmation/comorbidities/current clinical condition. The management has been done according to the current clinical condition with respect to patient goals of care and based on recommendations/guidelines. The patient/family has been informed about the current condition and further plan of care. Agreed with the plan of care and understood without any language barrier. Every effort was made to ensure accuracy of teachers assistant. Any obvious errors or omissions should be clarified with the author of the document. Coding Level of Care Code Acute Code for [facility] Fwd Diagnoses Suicide attempt by multiple drug overdose T50.912A Bone cancer C41.9 Cancer of left kidney C64.2
[2025-05-18 02:09] LABS: Bacillus cereus group Not Detected (NOT DETECT); Bacillus subtillis group Not Detected (NOT DETECT); Corynebacterium Not Detected (NOT DETECT); Cutibacterium acnes (P.acnes) Not Detected (NOT DETECT); Enterococcus faecalis Not Detected (NOT DETECT); Enterococcus faecium Not Detected (NOT DETECT); Listeria Not Detected (NOT DETECT); Micrococcus Detected (NOT DETECT); Pan Candida Not Detected (NOT DETECT); Pan Gram-Negative Not Detected (NOT DETECT); Staphylococcus epidermidis Not Detected (NOT DETECT); Staphylococcus lugdunensis Not Detected (NOT DETECT); Staphylococcus species Not Detected (NOT DETECT); Streptococcus anginosus group Not Detected (NOT DETECT); Streptococcus pyogenes Not Detected (NOT DETECT); Streptococcus species Not Detected (NOT DETECT)
--- NOTE | 2025-05-18 06:25 | PC.NURSE ---
vitals vs not collected resp 17 pt laying in bed with both eyes closed nurse notified
[2025-05-18 10:52] LABS: Hematocrit 42.2 % (37-53); Hemoglobin 14.40 g/dL (11.27-16.99); Mean Corpuscular HGB Conc 34.1 g/dL (30-55); Mean Corpuscular Hemoglobin 31.4 pg (27-33); Mean Corpuscular Volume 91.9 fl (82-101); Nucleated Red Blood Cells % 0 %; Platelet Count 269 10^3/cmm (157-399); Red Blood Count 4.59 10^6/uL (3.85-5.65); White Blood Count 8.62 10^3/uL (3.29-11.43)
[2025-05-18 14:00] VITALS: BP 113/79; PULSE 107; RESP 16; TEMP 36.4; O2SAT 95
--- NOTE | 2025-05-18 15:27 | W.PM.NPUPNS ---
Subjective NPU Subjective: Patient presented today reporting that his suicide attempt was secondary to being overwhelmed about of a relative as well as the stress of his current life. He reports that his significant other has visited and they feel that he is doing better. We discussed the fact that we would take it a day at a time and that secondary to the overdose attempt he would have some period of hospitalization for observation and we would continue to discuss discharge planning and the timeframe of discharge moving forward. He denied any side effects to his medication. Mental Status Exam MSE Comments: The patient was lying in bed and was pleasant and cooperative on interview. He appeared in mild to moderate distress. His gait was not tested. His hygiene appeared fair. There was no evidence of any abnormal involuntary motor movements, tics, or tremors appreciated. There was considerable psychomotor retardation that was present. His speech was normal in regards to rate, rhythm, and prosody. His mood was described as depressed and anxious. His affect was mood congruent and restricted in range. He was tearful at times during the interview. His thought process was linear, logical, and goal-directed. His thought content endorsed suicidal ideation while acknowledging his suicide attempt via overdose. He denied any homicidal ideation. He did not appear to be responding to internal stimuli. There was no evidence of any delusional thinking. He denied any current auditory or visual hallucinations. He was alert and oriented to person, place, time, and situation. His recent and remote memory appeared fair. His insight was fair. His judgment was poor. His impulse control appeared poor. Vitals/I&O/Wt Last Vital Signs Temp 97.6 F 05/18/25 14:00 Pulse 107 H 05/18/25 14:00 Resp 16 05/18/25 14:00 BP 113/79 05/18/25 14:00 Pulse Ox 95 05/18/25 14:00 O2 Del Method Room Air 05/18/25 14:00 Weight last 48 hrs Weight 102.6 kg Weight 102.058 kg Data NPU 05/18/25 10:41 05/17/25 06:46 Micro: Microbiology 05/16/25 18:20 Blood Culture - Preliminary Blood Micrococcus Species 05/16/25 18:17 Blood Culture - Preliminary Blood NEGATIVE TO DATE Microbiology 05/16/25 18:20 Blood Blood Culture - Preliminary Micrococcus Species 05/16/25 18:17 Blood Blood Culture - Preliminary NEGATIVE TO DATE A&P Assessment and plan 1. MDD (major depressive disorder), single episode, severe: 2. CORINA (generalized anxiety disorder): 3. Suicide attempt by multiple drug overdose: Plan: 54-year-old male currently in ICU admitted with overdose with suicidal intent currently on a 96-hour hold. Patient admits to being depressed and has no prior history of treatment. Once stabilized the patient will be admitted involuntarily to the neuropsychiatric unit for further evaluation and treatment. #1.? Engage patient in individual milieu and group therapy. #2?? Recommend sober living treatment at the highest level of care to which the patient is willing to commit #3???Will start zoloft 25mg daily with plan to titrate upwards to target anxiety and depression. ? #4?? TO-15 minute checks? #5?? Will attempt to gather collateral information, transfer to NPU once stabilized. PDMP PDMP Reviewed: Not Reviewed Involuntary Hold Information Hold Status: Legal Status: 96 Hour Hold Date/Time Hold Expires: 05/24/25 @18:00 Attestations NPU Medical Necessity Statement*: Inpatient psychiatric hospitalization is medically necessary and the clinically appropriate intervention at this time. We will monitor/initiate medications and make changes as indicated.? The patient?s likely length of stay is 3-6 days.? Coding Level of Care Code Acute Code for [facility] Fwd Diagnoses MDD (major depressive disorder), single episode, severe F32.2 CORINA (generalized anxiety disorder) F41.1 Suicide attempt by multiple drug overdose T50.912A
[2025-05-18 20:44] VITALS: BP 110/79; PULSE 99; RESP 17; TEMP 36.5; O2SAT 100
[2025-05-19 06:00] VITALS: RESP 14
--- NOTE | 2025-05-19 06:30 | PC.NURSE ---
pt asleep, vitals not done per order, nurse aware, resp 14
--- NOTE | 2025-05-19 07:39 | P.NPUPN_ITS ---
Subjective NPU 2 Subjective: Patient presented today reporting that things are going okay. He endorsed talking to his significant other and wishing he was home. He reported that he felt ready to go home we discussed the fact that the significant overdose that people will often say the day that he come to in the emergency department that they have learned her lesson but that there is a certain amount of time for observation that is standard of care. We discussed monitoring him for an appropriate period of time, discussing the situation with his tomorrow and setting a plan for discharge moving forward. He denied any side effects to the medication that we discussed the risks, benefits and alternatives of increasing his Zoloft and he understood and agreed to proceed as documented in this note. Mental Status Exam 2 MSE Comments: The patient was lying in bed and was pleasant and cooperative on interview. He appeared in mild to moderate distress. His gait was not tested. His hygiene appeared fair. There was no evidence of any abnormal involuntary motor movements, tics, or tremors appreciated. There was considerable psychomotor retardation that was present. His speech was normal in regards to rate, rhythm, and prosody. His mood was described as starting to feel better, maybe ready to go. His affect was mood congruent and somewhat less restricted in range. His thought process was linear, logical, and goal-directed. His thought content denied suicidal ideation while acknowledging his suicide attempt via overdose. He denied any homicidal ideation. He did not appear to be responding to internal stimuli. There was no evidence of any delusional thinking. He denied any current auditory or visual hallucinations. He was alert and oriented to person, place, time, and situation. His recent and remote memory appeared fair. His insight was fair. His judgment was poor. His impulse control appeared poor. Vitals/I&O/Wt Last Vital Signs Temp 97.7 F 05/18/25 20:44 Pulse 99 05/18/25 20:44 Resp 14 05/19/25 06:00 BP 110/79 05/18/25 20:44 Pulse Ox 100 05/18/25 20:44 O2 Del Method Room Air 05/18/25 20:44 Data NPU 05/19/25 09:40 05/17/25 06:46 Micro: Microbiology 05/16/25 18:20 Blood Culture - Preliminary Blood Micrococcus Species Microbiology 05/16/25 18:20 Blood Blood Culture - Preliminary Micrococcus Species A&P Assessment and plan 1. MDD (major depressive disorder), single episode, severe: 2. CORINA (generalized anxiety disorder): 3. Suicide attempt by multiple drug overdose: Plan: 54-year-old male currently in ICU admitted with overdose with suicidal intent currently on a 96-hour hold. Patient admits to being depressed and has no prior history of treatment. Once stabilized the patient will be admitted involuntarily to the neuropsychiatric unit for further evaluation and treatment. #1.? Engage patient in individual milieu and group therapy. #2?? Recommend sober living treatment at the highest level of care to which the patient is willing to commit #3???Started zoloft 25mg daily with plan to titrate upwards to target anxiety and depression. Increase to 50 mg p.o. daily. #4?? TO-15 minute checks? #5?? Will attempt to gather collateral information, Transferred to NPU 05/17/2025. PDMP PDMP Reviewed: Not Reviewed Involuntary Hold Information 2 Hold Status: Legal Status: 96 Hour Hold Date/Time Hold Expires: 05/24/25 @18:00 Attestations NPU 2 Medical Necessity Statement*: Inpatient psychiatric hospitalization is medically necessary and the clinically appropriate intervention at this time. We will monitor/initiate medications and make changes as indicated.? The patient?s likely length of stay is 3-5 days.? Coding Level of Care Code Acute Code for g Fwd Diagnoses MDD (major depressive disorder), single episode, severe F32.2 CORINA (generalized anxiety disorder) F41.1 Suicide attempt by multiple drug overdose T50.912A
[2025-05-19 09:49] LABS: Hematocrit 42.8 % (37-53); Hemoglobin 14.10 g/dL (11.27-16.99); Mean Corpuscular HGB Conc 32.9 g/dL (30-55); Mean Corpuscular Hemoglobin 30.9 pg (27-33); Mean Corpuscular Volume 93.7 fl (82-101); Nucleated Red Blood Cells % 0 %; Platelet Count 275 10^3/cmm (157-399); Red Blood Count 4.57 10^6/uL (3.85-5.65); White Blood Count 8.40 10^3/uL (3.29-11.43)
[2025-05-19 14:00] VITALS: BP 140/95; PULSE 92; RESP 16; O2SAT 97
[2025-05-19 20:17] VITALS: BP 132/92; PULSE 85; RESP 18; TEMP 36.4; O2SAT 96
--- NOTE | 2025-05-20 06:18 | PC.NURSE ---
vitals vs not collected pt laying in bed with both eyes closed resp 16 nurse notified
--- NOTE | 2025-05-20 11:22 | P.NPUPN_ITS ---
Subjective NPU 2 Subjective: Patient presented today reporting that he was feeling improvement. We discussed the fact that we would love to see him up and out of bed and engaging in the environment. We discussed his increased and Zoloft and he denied any side effects and in fact reported feeling better. We discussed the social work team/staff engaging his and seeing how he feels things are going and set a target discharge for Friday. She reports that he is fine with that and he denied any side effects to his medication. Mental Status Exam 2 MSE Comments: The patient was lying in bed and was pleasant and cooperative on interview. He appeared in mild to moderate distress. His gait was not tested. His hygiene appeared fair. There was no evidence of any abnormal involuntary motor movements, tics, or tremors appreciated. There was considerable psychomotor retardation that was present. His speech was normal in regards to rate, rhythm, and prosody. His mood was described as starting to feel better, maybe ready to go. His affect was mood congruent and somewhat less restricted in range. His thought process was linear, logical, and goal-directed. His thought content denied suicidal ideation while acknowledging his suicide attempt via overdose. He denied any homicidal ideation. He did not appear to be responding to internal stimuli. There was no evidence of any delusional thinking. He denied any current auditory or visual hallucinations. He was alert and oriented to person, place, time, and situation. His recent and remote memory appeared fair. His insight was fair. His judgment was poor. His impulse control appeared poor. Vitals/I&O/Wt Last Vital Signs Temp 97.5 F L 05/19/25 20:17 Pulse 85 05/19/25 20:17 Resp 18 05/19/25 20:17 BP 132/92 05/19/25 20:17 Pulse Ox 96 05/19/25 20:17 O2 Del Method Room Air 05/19/25 20:17 05/19/25 05/20/25 05/20/25 22:59 06:59 14:59 Intake Total 150 / 150 Output Total 300 / 300 Balance -150 / -150 Data NPU 05/19/25 09:40 05/17/25 06:46 A&P Assessment and plan 1. MDD (major depressive disorder), single episode, severe: 2. CORINA (generalized anxiety disorder): 3. Suicide attempt by multiple drug overdose: Plan: 54-year-old male currently in ICU admitted with overdose with suicidal intent currently on a 96-hour hold. Patient admits to being depressed and has no prior history of treatment. Once stabilized the patient will be admitted involuntarily to the neuropsychiatric unit for further evaluation and treatment. #1.? Engage patient in individual milieu and group therapy. #2?? Recommend sober living treatment at the highest level of care to which the patient is willing to commit #3???Started zoloft 25mg daily with plan to titrate upwards to target anxiety and depression. Increase to 50 mg p.o. daily. #4?? TO-15 minute checks? #5?? Will attempt to gather collateral information, Transferred to NPU 05/17/2025. PDMP PDMP Reviewed: Not Reviewed Involuntary Hold Information 2 Hold Status: Legal Status: 96 Hour Hold Date/Time Hold Expires: 05/24/25 @18:00 Attestations NPU 2 Medical Necessity Statement*: Inpatient psychiatric hospitalization is medically necessary and the clinically appropriate intervention at this time. We will monitor/initiate medications and make changes as indicated.? The patient?s likely length of stay is 3 days.? Coding Level of Care Code Acute Code for g Fwd Diagnoses MDD (major depressive disorder), single episode, severe F32.2 CORINA (generalized anxiety disorder) F41.1 Suicide attempt by multiple drug overdose T50.912A
[2025-05-20] MEDS: LOSARTAN 25 MG TABLET PO (12:32)
[2025-05-20 12:37] VITALS: BP 151/105; PULSE 105; RESP 22; TEMP 36.5; O2SAT 97
[2025-05-20 14:53] VITALS: BP 140/85; PULSE 103; RESP 18; TEMP 36.6; O2SAT 96
[2025-05-20 20:39] VITALS: BP 129/89; PULSE 74; RESP 17; TEMP 36.3; O2SAT 92
[2025-05-21 04:56] VITALS: BP 135/92; PULSE 81; RESP 18; TEMP 36.4; O2SAT 96
[2025-05-21] MEDS: LOSARTAN 25 MG TABLET PO (08:03)
--- NOTE | 2025-05-21 08:17 | P.NPUPN_ITS ---
Subjective NPU 2 Subjective: Patient presented today reporting that things are going fine. He endorsed that he was feeling extremely optimistic about things getting better and that he felt he would be ready to go on Friday or whenever we thought he was ready. Treatment team did speak with significant other and there are concerns that he is not facing or conversing about the elephant in the room being his suicide attempt. He endorsed managing the increase in the Zoloft without any concerns and denied any side effects to his medication. Mental Status Exam 2 MSE Comments: The patient was finally out of bed and was pleasant and cooperative during interview. He appeared in mild distress. His gait was not tested. His hygiene appeared fair. There was no evidence of any abnormal involuntary motor movements, tics, or tremors appreciated. There was mild resolving psychomotor retardation present. His speech was normal in regards to rate, rhythm, and prosody. His mood was described as feeling better, maybe ready to go. His affect was mood congruent and somewhat less restricted in range. His thought process was linear, logical, and goal-directed. His thought content denied suicidal ideation while acknowledging his suicide attempt via overdose. He denied any homicidal ideation. He did not appear to be responding to internal stimuli. There was no evidence of any delusional thinking. He denied any current auditory or visual hallucinations. He was alert and oriented to person, place, time, and situation. His recent and remote memory appeared fair. His insight was fair. His judgment was limited but improving. His impulse control appeared poor. Vitals/I&O/Wt Last Vital Signs Temp 97.5 F L 05/21/25 04:56 Pulse 81 05/21/25 04:56 Resp 18 05/21/25 04:56 BP 135/92 05/21/25 04:56 Pulse Ox 96 05/21/25 04:56 O2 Del Method Room Air 05/21/25 04:56 Data NPU 05/19/25 09:40 05/17/25 06:46 Micro: Microbiology 05/16/25 18:20 Blood Culture - Final Blood Micrococcus Species Microbiology 05/16/25 18:20 Blood Blood Culture - Final Micrococcus Species A&P Assessment and plan 1. MDD (major depressive disorder), single episode, severe: 2. CORINA (generalized anxiety disorder): 3. Suicide attempt by multiple drug overdose: Plan: 54-year-old male currently in ICU admitted with overdose with suicidal intent currently on a 96-hour hold. Patient admits to being depressed and has no prior history of treatment. Once stabilized the patient will be admitted involuntarily to the neuropsychiatric unit for further evaluation and treatment. #1.? Engage patient in individual milieu and group therapy. #2?? Recommend sober living treatment at the highest level of care to which the patient is willing to commit #3???Started zoloft 25mg daily with plan to titrate upwards to target anxiety and depression. Increased to 50 mg p.o. daily. #4?? TO-15 minute checks? #5?? Will attempt to gather collateral information, Transferred to NPU 05/17/2025. Will advise patient to have difficult conversation with significant other here making the easier to happen when he leaves. PDMP PDMP Reviewed: Not Reviewed Involuntary Hold Information 2 Hold Status: Legal Status: 96 Hour Hold Date/Time Hold Expires: 05/24/25 @18:00 Attestations NPU 2 Medical Necessity Statement*: Inpatient psychiatric hospitalization is medically necessary and the clinically appropriate intervention at this time. We will monitor/initiate medications and make changes as indicated.? The patient?s likely length of stay is 2-4 days.? Coding Level of Care Code Acute Code for [facility] Fwd Diagnoses MDD (major depressive disorder), single episode, severe F32.2 CORINA (generalized anxiety disorder) F41.1 Suicide attempt by multiple drug overdose T50.912A
[2025-05-21 14:00] VITALS: BP 126/95; PULSE 95; RESP 16; TEMP 36.7; O2SAT 96
[2025-05-21 21:15] VITALS: BP 129/90; PULSE 89; RESP 18; TEMP 36.6; O2SAT 96
[2025-05-22 06:00] VITALS: BP 130/81; PULSE 99; RESP 18; TEMP 36.3; O2SAT 94
--- NOTE | 2025-05-22 07:20 | P.NPUPN_ITS ---
Subjective NPU 2 Subjective: Patient presents today reporting that he is doing better. We discussed working with the social work team tomorrow to identify appropriate aftercare arrangements. We discussed him connecting with his been and making sure that they have talked about the situation in a way that they feel comfortable continuing that independent of the inpatient milieu. He denied any side effects of the medication and we discussed the likelihood of discharge in the next 48 hours. Mental Status Exam 2 MSE Comments: This is an overweight versus obese white male in hospital scrubs with adequate grooming and eye contact. No abnormal movements. Cooperative with exam in no acute distress. There was no evidence of any abnormal involuntary motor movements, tics, or tremors appreciated. His speech was normal in regards to rate, rhythm, and prosody. His mood was described as better, ready to go. His affect was mood congruent and less restricted in range. His thought process was linear, logical, and goal-directed. His thought content denied suicidal ideation while acknowledging his suicide attempt via overdose. He denied any homicidal ideation. He did not appear to be responding to internal stimuli. There was no evidence of any delusional thinking. He denied any current auditory or visual hallucinations. He was alert and oriented to person, place, time, and situation. His recent and remote memory appeared fair. His insight was fair. His judgment was limited but improving. His impulse control appeared poor. Vitals/I&O/Wt Last Vital Signs Temp 97.4 F L 05/22/25 06:00 Pulse 99 05/22/25 06:00 Resp 18 05/22/25 06:00 BP 130/81 05/22/25 06:00 Pulse Ox 94 05/22/25 06:00 O2 Del Method Room Air 05/22/25 06:00 Data NPU 05/19/25 09:40 05/17/25 06:46 Micro: Microbiology 05/16/25 18:17 Blood Culture - Final Blood NO GROWTH AFTER 5 DAYS Microbiology 05/16/25 18:17 Blood Blood Culture - Final NO GROWTH AFTER 5 DAYS A&P Assessment and plan 1. MDD (major depressive disorder), single episode, severe: 2. CORINA (generalized anxiety disorder): 3. Suicide attempt by multiple drug overdose: Plan: 54-year-old male currently in ICU admitted with overdose with suicidal intent currently on a 96-hour hold. Patient admits to being depressed and has no prior history of treatment. Once stabilized the patient will be admitted involuntarily to the neuropsychiatric unit for further evaluation and treatment. #1.? Engage patient in individual milieu and group therapy. #2?? Recommend sober living treatment at the highest level of care to which the patient is willing to commit #3???Started zoloft 25mg daily with plan to titrate upwards to target anxiety and depression. Increased to 50 mg p.o. daily. #4?? TO-15 minute checks? #5?? Will attempt to gather collateral information, Transferred to NPU 05/17/2025. Will advise patient to have difficult conversation with significant other here making the easier to happen when he leaves. PDMP PDMP Reviewed: Not Reviewed Involuntary Hold Information 2 Hold Status: Legal Status: 96 Hour Hold Date/Time Hold Expires: 05/24/25 @18:00 Attestations NPU 2 Medical Necessity Statement*: Inpatient psychiatric hospitalization is medically necessary and the clinically appropriate intervention at this time. We will monitor/initiate medications and make changes as indicated.? The patient?s likely length of stay is 1-3 days.? Coding Level of Care Code Acute Code for g Fwd Diagnoses MDD (major depressive disorder), single episode, severe F32.2 CORINA (generalized anxiety disorder) F41.1 Suicide attempt by multiple drug overdose T50.912A
[2025-05-22] MEDS: LOSARTAN 25 MG TABLET PO (08:49)
[2025-05-22 14:00] VITALS: BP 113/81; PULSE 95; RESP 17; TEMP 36.6; O2SAT 96
[2025-05-22 21:21] VITALS: BP 120/78; PULSE 72; RESP 18; TEMP 36.4; O2SAT 96
[2025-05-23 06:00] VITALS: RESP 16
--- NOTE | 2025-05-23 06:25 | PC.NURSE ---
vs not collected, pt asleep, nurse aware, resp 16
[2025-05-23] MEDS: LOSARTAN 25 MG TABLET PO (08:36)
[2025-05-23 13:36] VITALS: BP 125/85; PULSE 77; RESP 16; TEMP 36.3; O2SAT 97
--- NOTE | 2025-05-23 15:00 | W.PM.NPUDCS ---
Diagnoses at Discharge Discharge Diagnosis 1. MDD (major depressive disorder), single episode, severe: 2. CORINA (generalized anxiety disorder): 3. Suicide attempt by multiple drug overdose: Reason for Visit Reason for Visit: OD Involuntary Hold Information Hold Status: Legal Status: 96 Hour Hold Date/Time Hold Expires: 05/24/25 @18:00 Mental Status Exam MSE Comments: This is an overweight versus obese white male in hospital scrubs with adequate grooming and eye contact. No abnormal movements. Cooperative with exam in no acute distress. There was no evidence of any abnormal involuntary motor movements, tics, or tremors appreciated. His speech was normal in regards to rate, rhythm, and prosody. His mood was described as better, ready to go. His affect was mood congruent and less restricted in range. His thought process was linear, logical, and goal-directed. His thought content denied suicidal ideation while acknowledging his suicide attempt via overdose. He denied any homicidal ideation. He did not appear to be responding to internal stimuli. There was no evidence of any delusional thinking. He denied any current auditory or visual hallucinations. He was alert and oriented to person, place, time, and situation. His recent and remote memory appeared fair. His insight was fair. His judgment was limited but improving. His impulse control appeared poor. Discharge Data Studies Completed and Pending: Completed Studies During Hospitalization Category Date Time Status XR chest 1V adrián ble [id number] Stat Exams 05/16/25 17:52 Completed Radiology Impressions Chest X-Ray 05/16/25 17:52 IMPRESSION: 1. No acute chest pathology identified. 2. Moderate age-appropriate degenerative spinal changes. Other chronic/non-acute findings as described above. Laboratory Results WBC 8.40 10^3/uL (3.2 9-11.43) 05/19/25 09:40 Corrected WBC Cancelled 05/17/25 05:32 RBC 4.57 10^6/uL (3.8 5-5.65) 05/19/25 09:40 Hgb 14.10 g/dL (11.27 -16.99) 05/19/25 09:40 Hct 42.8 % (37-53) 05/19/25 09:40 MCV 93.7 fl (82-101) 05/19/25 09:40 MCH 30.9 pg (27-33) 05/19/25 09:40 MCHC 32.9 g/dL (30-55) 05/19/25 09:40 RDW 11.8 % (12.1-15.1 ) L 05/19/25 09:40 Plt Count 275 10^3/cmm (157 -399) 05/19/25 09:40 MPV 10.2 fL (7.4-10.4 ) 05/19/25 09:40 Gran % Cancelled 05/17/25 05:32 Neut % (Auto) 58.9 % 05/19/25 09:40 Lymph % (Auto) 30.7 % 05/19/25 09:40 [place] % (Auto) 8.1 % 05/19/25 09:40 Eos % (Auto) 1.1 % 05/19/25 09:40 Baso % (Auto) 0.8 % 05/19/25 09:40 Neut # (Auto) 4.95 10^3/uL (1.8 -7.7) 05/19/25 09:40 Lymph # (Auto) 2.6 10^3/uL (0.8- 4.8) 05/19/25 09:40 [place] # (Auto) 0.7 10^3/uL (0.2- 0.9) 05/19/25 09:40 Eos # (Auto) 0.1 10^3/uL (0.0- 0.8) 05/19/25 09:40 Baso # (Auto) 0.1 10^3/uL (0.0- 0.1) 05/19/25 09:40 Absolute Gran (aut o) Cancelled 05/17/25 05:32 Nucleated RBC % (a uto) 0 % 05/19/25 09:40 Nucleated RBCs # 0.0 /100WBC 05/19/25 09:40 Specimen Type Arterial 05/16/25 17:46 Sample Site Radial, right 05/16/25 17:46 ABG pH 7.40 (7.35-7.45) 05/16/25 17:46 ABG pCO2 37.4 mmHg (35-45) 05/16/25 17:46 ABG pO2 77.6 mmHg (80.0-1 00.0) L 05/16/25 17:46 ABG PO2/FiO2 Ratio 369 05/16/25 17:46 ABG HCO3 23.0 mmol/L (22-2 6) 05/16/25 17:46 ABG O2 Saturation 96.3 05/16/25 17:46 ABG Base Excess -1.5 mmol/L (-2.0 -2.0) 05/16/25 17:46 Shaggy Test Pos 05/16/25 17:46 A-a O2 Gradient 3.3 mmHg (5-10) L 05/16/25 17:46 Hematocrit 48.2 % (42-52) 05/16/25 17:46 Hgb O2 Saturation 95.0 % (95-100) 05/16/25 17:46 Carboxyhemoglobin 1.2 %THgb (0.4-20 .1) 05/16/25 17:46 Methemoglobin 0.1 % (0.4-1.5) L 05/16/25 17:46 Total Hemoglobin 15.7 g/dL (14-18) 05/16/25 17:46 Sodium 143.0 mmol/L (131 -143) 05/16/25 17:46 Potassium 4.0 mmol/L (3.5-5 .0) 05/16/25 17:46 Glucose 89.0 mg/dL (70-11 5) 05/16/25 17:46 Ionized Calcium 1.2 mmol/L (1.1-1 .4) 05/16/25 17:46 O2 Delivery Device Room air 05/16/25 17:46 FiO2 21.0 % 05/16/25 17:46 Creative Writer ID Gl 05/16/25 17:46 Sodium 140 mmol/L (136-1 45) 05/17/25 06:46 Potassium 4.5 mmol/L (3.5-5 .1) 05/17/25 06:46 Chloride 107 mmol/L (98-10 7) 05/17/25 06:46 Carbon Dioxide 25 mmol/L (22-29) 05/17/25 06:46 Anion Gap 12.5 (5-19) 05/17/25 06:46 BUN 13 mg/dL (6-20) 05/17/25 06:46 Creatinine 0.8 mg/dL (0.7-1. 2) 05/17/25 06:46 GFR Calculation 100.4 mL/min (90- 130) 05/17/25 06:46 Glucose 93 mg/dL (65-115) 05/17/25 06:46 Calculated Osmolal ity 290 mOsm/kg (285- 295) 05/17/25 06:46 Calcium 9.1 mg/dL (8.5-10 .5) 05/17/25 06:46 Magnesium 2.1 mg/dL (1.7-2. 3) 05/16/25 18:06 Total Bilirubin 0.5 mg/dL (0.15-1 .2) 05/17/25 06:46 AST 13 U/L (0-40) 05/17/25 06:46 ALT 13 U/L (0-41) 05/17/25 06:46 Alkaline Phosphata se 75 U/L (40-130) 05/17/25 06:46 Creatine Kinase 60 U/L (39-308) 05/16/25 18:06 Total Protein 6.3 g/dL (6.6-8.7 ) L D 05/17/25 06:46 Albumin 4.0 g/dL (3.5-5.2 ) 05/17/25 06:46 Globulin 2.3 g/dL (1.3-4.6 ) 05/17/25 06:46 Lipase 175 U/L (13-60) H 05/16/25 18:06 TSH 1.61 uIU/mL (0.27 -4.20) 05/16/25 18:06 Urine Color Yellow (Yellow) 05/16/25 19:18 Urine Appearance Clear (CLEAR) 05/16/25 19:18 Urine pH 6.0 (5-7) 05/16/25 19:18 Ur Specific Gravit y 1.016 (1.005-1.0 30) 05/16/25 19:18 Urine Protein Negative (Negati ve) 05/16/25 19:18 Urine Glucose (UA) Negative (Normal ) 05/16/25 19:18 Urine Ketones Negative (Negati ve) 05/16/25 19:18 Urine Blood Trace (Negative) A 05/16/25 19:18 Urine Nitrate Negative (Negati ve) 05/16/25 19:18 Urine Bilirubin Negative (Negati ve) 05/16/25 19:18 Urine Urobilinogen 1.0 mg/dL (Negati ve) 05/16/25 19:18 Ur Leukocyte Silvina ase Negative (Negati ve) 05/16/25 19:18 Urine RBC 0-2 /hpf (0-2) 05/16/25 19:18 Urine WBC 0-5 /hpf (0-5) 05/16/25 19:18 Ur Squamous Epith Cells 0-5 /hpf (0-5) 05/16/25 19:18 Amorphous Sediment Not Reportable 05/16/25 19:18 Urine Bacteria None seen /hpf (N ONE) 05/16/25 19:18 Hyaline Casts 0.40 /lpf 05/16/25 19:18 Salicylates < 0.3 mg/dL (3-10 ) L 05/16/25 18:06 Urine Opiates Scre en Positive ng/mL (N egative) H 05/16/25 19:18 Acetaminophen < 5.0 ug/mL (10-3 0) L 05/16/25 18:06 Ur Barbiturates Sc reen Negative ng/mL (N egative) 05/16/25 19:18 Ur Phencyclidine S crn Negative ng/mL (N egative) 05/16/25 19:18 Ur Amphetamines Sc reen Negative ng/mL (N egative) 05/16/25 19:18 U Benzodiazepines Scrn Positive ng/mL (N egative) H 05/16/25 19:18 Urine Cocaine Scre en Negative ng/mL (N egative) 05/16/25 19:18 U Marijuana (THC) Screen Positive ng/mL (N egative) H 05/16/25 19:18 Vitals: Last Vital Signs Temp 97.3 F L 05/23/25 13:36 Pulse 77 05/23/25 13:36 Resp 16 05/23/25 13:36 BP 125/85 05/23/25 13:36 Pulse Ox 97 05/23/25 13:36 O2 Del Method Room Air 05/23/25 13:36 Discharge Plan Discharge Patient Disposition: Home Condition: Stable Prescriptions: New docusate sodium 100 mg Capsule 100 mg PO BID 30 Days Qty: 60 1RF trazodone 50 mg Tablet 50 mg PO BEDTIME PRN (Reason: Sleep) 30 Days Qty: 30 1RF sertraline 50 mg Tablet 50 mg PO DAILY 30 Days Qty: 30 1RF hydroxyzine pamoate 25 mg Capsule 50 mg PO Q6H PRN (Reason: Anxiety) 30 Days Qty: 120 1RF Continued ketoconazole 2 % shampoo 1 applic topical Q14D amlodipine 10 mg tablet 10 mg PO DAILY losartan 25 mg tablet 25 mg PO DAILY metoprolol tartrate 25 mg tablet 25 mg PO BID Zepbound 5 mg/0.5 mL pen injector 5 mg SUBCUT Q7D Zepbound 7.5 mg/0.5 mL pen injector 7.5 mg SUBCUT Q7D Discontinued diazepam [Valium] 10 mg tablet 10 mg PO BID PRN (Reason: Anxiety) Discharge Order = DC NOW: Discharge Order (Routine); Ordered 05/23/25 Ordered By: John Preciado Referrals: LUCIANO De La Fuente [Other] - 05/27/25 11:20 am Referral Note: Hospital follow up. Apperc[facility] [Other] - 05/24/25 3:45 pm Referral Note: Therapist [facility] [Outside] Discharge Diet: Regular Discharge Activity: Resume usual activity Patient Instructions: Opioid Safety, Patient Portal & Sanjeev Instructions Discharge Attestations NPU Time Spent in Discharge Care*: less than 30 min Specific Discharge Activities: Specific discharge activities: educating patient, discussing with rehabilitation case coordinator/social workers/dc planners, documenting/other paperwork and evaluating patient/reviewing data Coding Level of Care Code Acute Code for [facility] Fwd Diagnoses MDD (major depressive disorder), single episode, severe F32.2 CORINA (generalized anxiety disorder) F41.1 Suicide attempt by multiple drug overdose T50.912A
[2025-05-23 15:11] VITALS: BP 125/85; PULSE 77; RESP 16; TEMP 36.3; O2SAT 97
--- NOTE | 2025-05-23 16:21 | DCPLANNER ---
IMM was given to pt and rights explained. Copy placed in pts file.
== END 2025-05-23 16:22 | disposition home or self-care (01) | DRG 918 ==
LOC: ER 18:49 → ICU 20:22 → NP 05-17 12:56
PROVIDERS: Admitting Provider Student in an Organized Health Care Education/Training Program; Emergency Provider Family Medicine; PCP Nurse Practitioner Family; Visit Provider Student in an Organized Health Care Education/Training Program
DX: T46.5X2A Poisoning by other antihypertensive drugs, intentional self-harm, initial encounter (principal); F32.2 Major depressive disorder, single episode, severe without psychotic features; C41.9 Malignant neoplasm of bone and articular cartilage, unspecified; C64.2 Malignant neoplasm of left kidney, except renal pelvis; F41.1 Generalized anxiety disorder; E66.9 Obesity, unspecified; Z68.32 Body mass index [BMI] 32.0-32.9, adult; T44.7X2A Poisoning by beta-adrenoreceptor antagonists, intentional self-harm, initial encounter; Y92.9 Unspecified place or not applicable; Z87.891 Personal history of nicotine dependence
CPT/HCPCS: 36415; 36600; 71045; 80051; 80053; 80306; 80307; 81001; 82330; 82550; 82805; 83690; 83735; 84443; 85025; 87040; 87150; 87205; 93005; 96372; 97150; 97165; 99285; J1644; J7030; J7120; J9999; Q0162